=== PATIENT | female | born 1965 | race Caucasian/White ===

== ENCOUNTER 2019-04-26 12:27 | Outpatient (CLI) | payer OTHER, SELFPAY ==
--- NOTE | ~2019-04-26 | MM_ITS ---
EXAMINATION: MM screening [facility] BI w rosemary HISTORY: Screening mammogram TECHNIQUE: Craniocaudal and mediolateral oblique 3-D tomosynthesis images were obtained and synthetic 2-D images were generated. CAD analysis was submitted and interpreted. COMPARISON: 02/12/2015 BREAST PARENCHYMAL COMPOSITION: The breasts are heterogeneously dense, which may obscure small masses . FINDINGS: RIGHT BREAST: There is no evidence of suspicious mass, calcification, or architectural distortion to suggest malignancy. There has been no significant interval change. LEFT BREAST: There are grouped indeterminate calcifications in the middle third of the central breast 5 cm from the nipple. IMPRESSION: 1. Indeterminate left breast calcifications. 2. Magnification views are recommended. BI-RADS Category 0: Incomplete: Needs additional imaging evaluation. Reviewed, dictated and finalized at location A. NDARY TEACHER
== END 2019-04-26 12:28 ==
PROVIDERS: PCP Physician Assistant; Visit Provider Physician Assistant
DX: Z12.31 Encounter for screening mammogram for malignant neoplasm of breast (principal); R92.8 Other abnormal and inconclusive findings on diagnostic imaging of breast
CPT/HCPCS: 77063; 77067

== ENCOUNTER 2019-05-05 16:59 | Emergency (ER) | payer OTHER, SELFPAY ==
[2019-05-05 17:04] VITALS: BP 133/73; PULSE 83; RESP 16; TEMP 36.5; O2SAT 100
--- NOTE | 2019-05-05 17:12 | ED.GENADULT ---
HPI - General Adult General Chief complaint: Upper Respiratory Infection Stated complaint: congestion/cough/sore throat/ear pain Time Seen by Provider: 05/05/19 17:14 Source: patient and RN notes reviewed Limitations: no limitations History of Present Illness HPI narrative: This is a 53 years old female presented office for evaluation of sinus congestion for 4-day. Associated with headache and cough. She tried Afrin with no relief. Denies fever, sick contact, or sore throat. Related Data Home Medications Medication Instructions Recorded Confirmed irbesartan 150 mg DAILY 05/05/19 05/05/19 piroxicam 20 mg/kg DAILY 05/05/19 05/05/19 Allergies Allergy/AdvReac Type Severity Reaction Status Date / Time No Known Allergies Allergy Verified 05/05/19 17:11 Review of Systems Review of Systems: Narrative: CONSTITUTIONAL: Denies fever, chills ENT: Deniessore throat, otalgia. CARDIOVASCULAR: Denies chest pain RESPIRATORY: Denies dyspnea GASTROINTESTINAL: Denies abdominal pain, nausea, vomiting, diarrhea. GENITOURINARY: Denies urinary symptoms SKIN: Denies rash MUSCULOSKELETAL: Denies acute back pain NEUROLOGIC: Denies lightheaded PMFSH Past Medical History Medical History Anxiety Chronic headaches Depression Dyspnea HTN (hypertension) Insomnia Sleep apnea Weight gain Family History Family History Other Diabetes mellitus Family history of arthritis Family history of gout Family history of kidney disease Hypertension Social History Social History Smoking status: Former smoker Tobacco type: cigarettes Smoking end date: 03/22/95 Alcohol intake: current Substance use: unknown Gender identity (if verbalized by the patient): Female Spiritual care concerns: No Comments At time of signature, I agree with nursing past medical, surgical, social and family history. Exam Narrative: Exam Narrative: GENERAL: This is a well-nourished, well-developed patient, in no apparent distress. EYES: Sclera clear/white. Vision is grossly intact. EARS: External ears normal, auditory canals clear and without drainage, TMs normal without perforation. Hearing grossly intact. NOSE: External nose normal with no obvious nasal discharge, nares without redness, no rhinorrhea. THROAT: Mucous membranes moist, posterior pharynx clear. NECK: Neck supple, non-tender without lymphadenopathy, masses or thyromegaly. CARDIOVASCULAR: Regular rate and rhythm without murmurs, gallops, or rubs. RESPIRATORY: Clear to auscultation. Breath sounds equal bilaterally. No wheezes, rales, or rhonchi. GASTROINTESTINAL: Abdomen soft, non-tender, nondistended. Bowel sounds are active. No hepato-splenomegaly, or palpable masses. No guarding. SKIN: warm, intact with no suspicious lesions or rash, good texture and turgor. NEURO: awake, alert, and oriented to person, place and time. There were no obvious focal neurologic abnormalities. Steady gait Marsha Coma Scale Eye Opening: Spontaneous 4 Marsha Coma Scale Motor: Obeys Commands 6 [place] Coma Scale Verbal: Oriented 5 Course Vital Signs Vital signs: Vital Signs Temperature 97.7 F 05/05/19 17:04 Pulse Rate 83 05/05/19 17:04 Respiratory Rate 16 05/05/19 17:04 Blood Pressure 133/73 05/05/19 17:04 Pulse Oximetry 100 05/05/19 17:04 Temperature 97.7 F 05/05/19 17:04 Pulse Rate 83 05/05/19 17:04 Respiratory Rate 16 05/05/19 17:04 Blood Pressure 133/73 05/05/19 17:04 Pulse Oximetry 100 05/05/19 17:04 Medical Decision Making MDM Narrative Medical decision making narrative: Discharge instructions reviewed with patient, as well as provided in writing per nursing staff. The instructions also include specific and strict return/GO TO THE ER as well as f/u information. All questions have be
== END 2019-05-05 17:25 | disposition home or self-care (01) ==
PROVIDERS: Emergency Provider Nurse Practitioner; PCP Physician Assistant
DX: J01.00 Acute maxillary sinusitis, unspecified (principal); Z87.891 Personal history of nicotine dependence; I10 Essential (primary) hypertension; G47.30 Sleep apnea, unspecified
CPT/HCPCS: 99213; G0463

== ENCOUNTER → 2019-05-10 08:01 | Outpatient (CLI) | payer OTHER, SELFPAY ==
--- NOTE | ~2019-05-10 | MM_ITS ---
EXAMINATION: MM diagnostic mammo unilat LT HISTORY: Indeterminate left breast calcifications on screening mammogram TECHNIQUE: Additional images of the left breast were performed. CAD analysis was submitted and interp reted. COMPARISON: 04/26/2019, 02/12/2015 FINDINGS: There are grouped calcifications in the middle third of the upper outer quadrant of the andre ast at the 2:00 location approximately 5 cm from the nipple which appear to be amorphous in morpholog y. No associated mass or architectural distortion are identified. IMPRESSION: 1. Suspicious left breast calcifications. 2. Stereotactic biopsy is recommended. BI-RADS category 4, suspicious findings. Reviewed, dictated and finalized at location A. ICAL ASSISTANT CERTIFIED
== END ==
PROVIDERS: PCP Physician Assistant; Visit Provider Family Medicine
DX: R92.8 Other abnormal and inconclusive findings on diagnostic imaging of breast (principal)
CPT/HCPCS: 77065

== ENCOUNTER 2019-05-17 08:46 | Outpatient (CLI) | payer OTHER, SELFPAY ==
--- NOTE | ~2019-05-17 | MM_ITS ---
MM post biopsy invasive LT, MM stereotactic specimen LT, MM stereotactic bx LT EXAMINATION: MM post b iopsy invasive LT, MM stereotactic specimen LT, MM stereotactic bx LT DATE: 05/17/2019 INDICATION: Abnormal calcifications in the left breast. Stereotactic core biopsy is requested evalua te for malignancy.] TECHNIQUE AND FINDINGS: The risks and potential benefits of the procedure were discussed with the patient and written informe d consent was obtained. The patient was placed in the prone position clustered at the table with the left breast in craniocaudal compression, and the area of interest was localized and targeted utilizi ng digital imaging with stereotaxis. After sterile preparation of the skin, 1% lidocaine was utilized for local anesthesia at the skin pun cture site and 1% lidocaine with epinephrine was utilized for deeper local anesthesia/is about the bi opsy site. A 9G Sarnova vacuum assisted biopsy needle was advanced to the level of the calcification o f interest from a caudal approach utilizing stereotactic guidance and a total of 6 tissue core biopsi es were obtained. A specimen radiograph demonstrates that the calcifications of interest are included within the tissue cores. A tissue marker clip was then placed at the biopsy site. The needle was removed and hemosta sis was achieved. The patient tolerated the procedure well and there is no evidence of significant i mmediate complication. The patient was given verbal as well as written postprocedural instructions p rior to discharge from the department. Tissue cores were submitted to surgical pathology for histolo gic analysis. A 2-view left unilateral digital mammogram was obtained post procedure and this demonstrates that the tissue marker clip is in expected position.] IMPRESSION: 1. Successful stereotactic biopsy of calcifications in the upper quadrant of the left breast, follow ed by tissue marker clip placement. Please refer to pathology report for histologic analysis. Reviewed, dictated and finalized at location A. MOMETER PRODUCTION WORKER IMPRESSION: 1. Successful stereotactic biopsy of calcifications in the upper quadrant of t he left breast, followed by tissue marker clip placement. Please refer to path ology report for histologic analysis. IMPRESSION: 1. Successful stereotactic biopsy of calcifications in the upper quadrant of t he left breast, followed by tissue marker clip placement. Please refer to path ology report for histologic analysis.
== END 2019-05-17 08:47 | disposition home or self-care (01) ==
PROVIDERS: PCP Physician Assistant; Visit Provider Family Medicine
DX: R92.1 Mammographic calcification found on diagnostic imaging of breast (principal)
CPT/HCPCS: 19081; 88305; A4648

== ENCOUNTER 2020-03-02 10:42 | Emergency (ER) | payer OTHER, SELFPAY ==
[2020-03-02 10:51] VITALS: BP 131/79; PULSE 83; RESP 18; TEMP 37.2; O2SAT 98
--- NOTE | 2020-03-02 11:21 | ED.GENADULT ---
HPI - General Adult General Chief complaint: Upper Respiratory Infection Stated complaint: Cough Time Seen by Provider: 03/02/20 11:09 Source: patient and RN notes reviewed Mode of arrival: ambulatory Limitations: no limitations History of Present Illness HPI narrative: Patient presents today complaining of a dry cough x1 month. Denies any additional symptoms to include congestion, rhinorrhea, sore throat, headache, fever, shortness of breath. She has been diagnosed with bronchitis in the past. She was on prednisone in December for similar symptoms. Denies history of asthma or COPD. In April of this year she was given prescriptions for albuterol and budesonide breathing treatments, but she did not know if it was appropriate that she use those during this illness so she has not been. She has been using Vicks VapoRub without relief. Cough is keeping her up at night. MD complaint: Cough Related Data Home Medications Medication Instructions Recorded Confirmed irbesartan-hydrochlorothiazide 1 tablet PO DAILY 03/02/20 03/02/20 Allergies Allergy/AdvReac Type Severity Reaction Status Date / Time No Known Allergies Allergy Verified 03/02/20 10:44 Review of Systems Review of Systems: Narrative: CONSTITUTIONAL: Denies body aches, fever, chills, or sweats. EYES: Denies visual changes, redness, or discharge. ENT: Denies rhinorrhea, congestion, sore throat, or otalgia. CARDIOVASCULAR: Denies chest pain, palpitations, or edema. RESPIRATORY: Denies dyspnea.+ Cough GASTROINTESTINAL: Denies abdominal pain, nausea, vomiting, or diarrhea. GENITOURINARY: Denies dysuria or hematuria. SKIN: Denies rash, itching, or wounds. MUSCULOSKELETAL: Denies back pain, joint pain, or myalgia. NEUROLOGIC: Denies headache, numbness, tingling, or weakness. PSYCH: Denies depression or anxiety. [facility] Past Medical History Medical History (Updated 03/02/20 @ 11:21 by Anjana Downing, AFUA, ) Anxiety Chronic headaches Depression Dyspnea HTN (hypertension) Insomnia Sleep apnea Weight gain Family History Family History Other Diabetes mellitus Family history of arthritis Family history of gout Family history of kidney disease Hypertension Social History Social History Smoking status: Former smoker Tobacco type: cigarettes Smoking end date: 03/22/95 Alcohol intake: current Substance use: unknown Gender identity (if verbalized by the patient): Female Spiritual care concerns: No Comments At time of signature, I have reviewed and agree with nursing past medical, surgical, social and family history unless otherwise noted. Please see nursing chart for further information. There is no relevant family history pertinent to the presenting complaint Exam Narrative: Exam Narrative: GENERAL: Well-appearing, well-nourished, and in no acute distress. HEAD: Normocephalic, atraumatic. EYES: EOMI. No redness or drainage. Conjunctivae normal. ENT: Mucous membranes pink and moist. Nares clear. No rhinorrhea. TMs normal bilaterally. Throat normal. Uvula midline. NECK: Normal AROM. Supple. No lymphadenopathy. CHEST: No respiratory distress. Clear to auscultation. Frequent dry, tight cough HEART: Regular rate and rhythm. No murmur appreciated. Normal peripheral pulses. ABDOMEN: Soft, nontender, nondistended, normal active bowel sounds. MUSCULOSKELETAL: No bony tenderness. EXTREMITIES: Normal range of motion. No edema. SKIN: Warm, dry, no rash. Capillary refill normal. Normal skin turgor. NEURO: No focal deficits. Alert and oriented x3. Gait steady. PSYCH: Normal affect. No signs of depression or anxiety. Course Vital Signs Vital signs: Vital Signs Temperature 98.9 F 03/02/20 10:51 Pulse Rate 83 03/02/20 10:51 Respiratory Rate 18 03/02/20 10:51 Blood Pressure 131/79 03/02/20 10:51 Pulse Oxime
== END 2020-03-02 11:28 | disposition home or self-care (01) ==
PROVIDERS: Emergency Provider Nurse Practitioner; PCP Family Medicine
DX: J40 Bronchitis, not specified as acute or chronic (principal); Z87.891 Personal history of nicotine dependence; I10 Essential (primary) hypertension; G47.30 Sleep apnea, unspecified
CPT/HCPCS: 99213; G0463

== ENCOUNTER 2020-04-14 21:16 | Emergency (ER) | payer OTHER, SELFPAY ==
[2020-04-14] VITALS (12 sets, daily range): BP systolic 122–143; BP diastolic 70–78; PULSE 95; RESP 18; TEMP 36.2; O2SAT 94–99
--- NOTE | ~2020-04-14 | CT_ITS ---
EXAMINATION: CT abdomen pelvis wo con EXAM DATE: 04/14/2020 23:19 INDICATION: Right flank pain for couple of weeks. TECHNIQUE: Spiral CT of the abdomen and pelvis was performed without contrast. Axial, coronal and sag ittal images were reviewed. The dose-length product (DLP) for this examination was 1151.12 mGy-cm. The exposure was tailored according to patient size (auto mA exposure control), and iterative reconst ruction (ASIR) was used as additional dose reduction technique. Comparison is made to prior examinati on from 11/21/2016. FINDINGS: There are bilateral nonobstructing calyceal stones, with one in the right renal pelvis lazaro uring 8 mm and one in the left renal pelvis measuring 10 mm. Several other smaller left calyceal ston es. No ureteral stones or hydronephrosis. There is an IUD in the uterus. There is a fundal fibroid m easuring 5.5 cm. The bladder is unremarkable. The liver, spleen, adrenal glands and pancreas are un remarkable. There are cholecystectomy clips. There is no retroperitoneal or pelvic lymphadenopathy. The appendix is normal. The stomach and small bowel are unremarkable. There is expected amount of c olonic stool. No free intraperitoneal gas. The heart is normal in size. There are no pericardial or pleural effusions. The lung bases are unremarkable. There is advanced lower lumbar facet arthro fadumo. IMPRESSION: 1. Bilateral nonobstructing kidney stones. 2. Fibroid uterus. Reviewed, dictated and finalized at location A. ULAR PHYSICIAN
[2020-04-14 22:15] LABS: Basophils Absolute Auto 0.1 K/mm3 (0.0-0.1); Eosinophils Absolute Auto 0.2 K/mm3 (0-0.3); Eosinophils Percent Auto 2.3 % (0-4.4); Hematocrit 38.1 % (37.0-47.0); Hemoglobin 12.9 g/dL (12.0-15.0); Immature Granulocyte Absolute 0.03 K/mm3 (0.00-0.031); Immature Granulocyte Percent A 0.4 % (0-0.5); Lymphocytes Absolute Auto 2.84 K/mm3 (0.9-3.2); Mean Corpuscular HGB Conc 33.9 g/dl (32-36); Mean Corpuscular Hemoglobin 31.7 pg (26-34); Mean Corpuscular Volume 93.6 fl (80-100); Mean Platelet Volume 10.7 fl (7.4-10.4); Monocytes Absolute Auto 0.7 K/mm3 (0.1-0.6); Monocytes Percent Auto 8.5 % (2.6-8.5); Neutrophils Absolute Auto 4.1 K/mm3 (1.3-6.7); Neutrophils Percent Auto 51.8 % (45.5-73.1); Platelet Count Result 325 k/mm3 (150-375); Red Blood Count 4.07 M/mm3 (4.2-5.4); Red Cell Distribution Width 12.3 % (11.5-14.5); White Blood Count 7.9 K/mm3 (4.5-10.0)
[2020-04-14 22:23] LABS: Add Urine Microscopic? YES; Appearance Urine Cloudy (Clear); Bacteria Urine Trace /hpf; Bilirubin Urine Negative (Negative); Blood Urine 3+ (Negative); Color Urine Yellow (Yellow); Glucose Urine UA Negative (Negative); Ketones Urine Negative (Negative); Leukocyte Esterase Ur Negative LEU/UL (Negative); Mucus Urine Rare /lpf; Nitrate Urine Negative (Negative); Protein Urine 2+ mg/dL (Negative); RBC Urine >75 /hpf (0-2); Specific Grav Ur 1.023 (1.001-1.035); Squamous Epithelial Cell Urine Many /hpf (Few); Urobilinogen Urine Negative mg/dL (<2.0); WBC Urine 0-3 /hpf
[2020-04-14 22:27] LABS: Anion Gap 7 mmol/L (8-16); Blood Urea Nitrogen 18 mg/dL (7-17); Calcium 8.9 mg/dL (8.4-10.2); Carbon Dioxide 28 mmol/L (22-30); Chloride 104 mmol/L (98-107); Estimated CRCL calculation 93 ml/min; Estimated Glomerular Filt Rate > 60; Glucose 124 mg/dL (65-105); Potassium 3.5 mmol/L (3.4-5.0); Sodium 139 mmol/L (137-145)
[2020-04-14] MEDS: KETOROLAC 30 MG/ML VIAL (*BKC) IV PUSH (22:42)
[2020-04-15] VITALS: O2SAT 99
[2020-04-15 00:01] VITALS: BP 124/78; O2SAT 98
--- NOTE | 2020-04-15 00:08 | ED.FEMALEGU ---
HPI - Female Genitourinary General Chief complaint: Urogenital-Female Stated complaint: think its a kidney stone Time Seen by Provider: 04/14/20 21:26 History of Present Illness HPI Narrative: Patient is a 54-year-old female who presents ER with right-sided low back/flank pain. Has history of kidney stones. Patient thinks this is similar. Had some hematuria couple days ago. No dysuria or urinary frequency. No waves of nausea or vomiting. Denies alleviating factors. Related Data Home Medications Medication Instructions Recorded Confirmed irbesartan-hydrochlorothiazide 1 tablet PO DAILY 03/02/20 03/02/20 Allergies Allergy/AdvReac Type Severity Reaction Status Date / Time No Known Allergies Allergy Verified 04/14/20 21:17 Review of Systems Review of Systems: All systems reviewed & are unremarkable except as noted in HPI and below Gastrointestinal: Gastrointestinal: Denies abdominal pain, Denies nausea and Denies vomiting Genitourinary: Genitourinary: Reports hematuria and Reports flank pain Neurologic: Denies headache(s), Denies focal weakness and Denies numbness PMFSH Past Medical History Medical History (Updated 04/15/20 @ 00:11 by Robert Orozco MD) Anxiety Chronic headaches Depression Dyspnea HTN (hypertension) Insomnia Sleep apnea Weight gain Family History Family History Other Diabetes mellitus Family history of arthritis Family history of gout Family history of kidney disease Hypertension Social History Social History Smoking status: Former smoker Tobacco type: cigarettes Smoking end date: 03/22/95 Alcohol intake: current Substance use: unknown Gender identity (if verbalized by the patient): Female Spiritual care concerns: No Exam Narrative: Exam Narrative: GENERAL: Well-appearing, well-nourished, and in no acute distress. HEAD: Normocephalic, atraumatic. CHEST: Clear to auscultation. No respiratory distress. HEART: Regular rate and rhythm. Normal peripheral pulses. ABDOMEN: Soft, nontender, nondistended, no CVA tenderness. Back: No midline T/L-spine tenderness. No reproducible paraspinal muscular tenderness. EXTREMITIES: Normal range of motion. No edema. NEURO: Alert and oriented x3. PSYCH: Normal mood and affect. Course Course Emergency Course: Pain improved with Toradol. Informed results. Discharge home. Vital Signs Vital signs: Vital Signs Temperature 97.1 F L 04/14/20 21:19 Pulse Rate 95 04/14/20 21:19 Respiratory Rate 18 04/14/20 21:19 Blood Pressure 143/78 H 04/14/20 21:19 Pulse Oximetry 94 04/14/20 21:19 Temperature 97.1 F L 04/14/20 21:19 Pulse Rate 95 04/14/20 21:19 Respiratory Rate 18 04/14/20 21:19 Blood Pressure 122/77 04/14/20 22:31 Pulse Oximetry 99 04/14/20 22:31 MDM - Female Genitourinary Lab Data Result diagrams: 04/14/20 21:59 04/14/20 21:59 Labs: Lab Results 04/14/20 04/14/20 04/14/20 Range/Units 21:59 21:59 21:59 WBC 7.9 (4.5-10.0) K/mm3 RBC 4.07 L (4.2-5.4) M/mm3 Hgb 12.9 (12.0-15.0) g/dL Hct 38.1 (37.0-47.0) % MCV 93.6 (80-100) fl MCH 31.7 (26-34) pg MCHC 33.9 (32-36) g/dl RDW 12.3 (11.5-14.5) % Plt Count 325 (150-375) k/mm3 MPV 10.7 H (7.4-10.4) fl Immature Gran % (Auto) 0.4 (0-0.5) % Neut % (Auto) 51.8 (45.5-73.1) % Lymph % (Auto) 36.0 (18.3-44.2) % Alcorn % (Auto) 8.5 (2.6-8.5) % Eos % (Auto) 2.3 (0-4.4) % Baso % (Auto) 1.0 (0.2-1.2) % Lymph # (Auto) 2.84 (0.9-3.2) K/mm3 Alcorn # (Auto) 0.7 H (0.1-0.6) K/mm3 Eos # (Auto) 0.2 (0-0.3) K/mm3 Baso # (Auto) 0.1 (0.0-0.1) K/mm3 Abs Immat Gran (auto) 0.03 (0.00-0.031) K/mm3 Absolute Neuts (auto) 4.1 (1.3-6.7) K/mm3 Absolute Nucleated RBC 0.0 (0.0-0.012) K/mm3 Nucleated RBC %
[2020-04-15 00:15] VITALS: O2SAT 96
== END 2020-04-15 00:34 | disposition home or self-care (01) ==
PROVIDERS: Emergency Medicine; Emergency Provider Emergency Medicine; PCP Family Medicine
DX: N20.0 Calculus of kidney (principal); I10 Essential (primary) hypertension; G47.30 Sleep apnea, unspecified; Z87.891 Personal history of nicotine dependence; Z87.442 Personal history of urinary calculi; D25.9 Leiomyoma of uterus, unspecified
CPT/HCPCS: 36415; 74176; 80048; 81001; 81025; 85025; 96374; 99284; J1885

== ENCOUNTER 2020-04-16 02:28 | Outpatient (CLI) | payer OTHER, SELFPAY ==
[2020-04-16 18:12] LABS: SARS-CoV-2 RNA PCR Negative
== END 2020-04-16 02:29 | disposition home or self-care (01) ==
LOC: ANHCOVIDDT 02:29
PROVIDERS: PCP Family Medicine; Visit Provider Urology
DX: Z01.812 Encounter for preprocedural laboratory examination (principal); Z20.822 Contact with and (suspected) exposure to COVID-19
CPT/HCPCS: C9803; U0003; U0005

== ENCOUNTER 2020-04-16 09:25 | Outpatient (CLI) | payer OTHER, SELFPAY ==
--- NOTE | 2020-04-16 09:28 | ECG_ITS ---
Measurements Intervals [place] Rate: 65 P: 38 MD: 149 QRS: -12 QRSD: 87 T: 17 QT: 376 QTc: 392 Interpretive Statements SINUS RHYTHM POOR R WAVE PROGRESSION, ANTERIOR LEADS BASELINE ARTIFACT- I, III, AVL BORDERLINE ECG Electronically Signed On 04-16-2020 11:07:13 PUBLICITY MANAGER by Rambo Stauffer D.O.
[2020-04-16 10:35] LABS: INR 0.9; Prothrombin Time 12.6 Seconds (11.1-14.7)
[2020-04-16 10:36] LABS: Partial Thromboplastin Time 27.1 SECONDS (22.3-36.8)
== END 2020-04-16 09:26 | disposition home or self-care (01) ==
LOC: ANHSURGERY 09:28
PROVIDERS: PCP Family Medicine; Visit Provider Urology
DX: N20.0 Calculus of kidney (principal); I10 Essential (primary) hypertension; Z01.818 Encounter for other preprocedural examination; R94.31 Abnormal electrocardiogram [ECG] [EKG]
CPT/HCPCS: 36415; 85610; 85730; 87077; 87086; 87088; 87186; 93005

== ENCOUNTER 2020-04-19 01:50 | Day surgery (SDC) | payer OTHER, SELFPAY ==
[2020-04-16 08:33] VITALS: BMI 33.0
--- NOTE | 2020-04-18 14:46 | WPDANESEPPF ---
Anes - Initial Pre Proc Eval Procedure: Operation Date: 04/19/20 11:30 Proposed Procedures p Right Renal Extracorporeal Shock Wave Lithotripsy - Evaristo Vega MD Date/Time: 04/18/20 14:46 Surgeon: Evaristo Vega MD Pre Op Diagnosis: Right Renal Stone Patient Data Age: 54 Gender: F Height: 1.68 m Weight: 93 kg Allergies Allergy/AdvReac Type Severity Reaction Status Date / Time No Known Allergies Allergy Verified 04/16/20 08:29 Home Medications Medication Instructions Recorded Confirmed Type irbesartan-hydrochlorothiazide 1 tablet PO QAM 03/02/20 04/16/20 History albuterol sulfate 2.5 mg INHALATION BID PRN 04/16/20 04/16/20 History budesonide 0.5 mg INHALATION BID PRN 04/16/20 04/16/20 History Patient hx anesthesia problems: none Family hx anesthesia problems: none PMFSH Past Medical History Medical History (Updated 04/19/20 @ 09:35 by Damien Hart MD) Anxiety Chronic headaches COPD (chronic obstructive pulmonary disease) Depression Dyspnea HTN (hypertension) Insomnia Obesity Sleep apnea Weight gain Family History Family History Other Diabetes mellitus Family history of arthritis Family history of gout Family history of kidney disease Hypertension Social History Social History Smoking packs per day: 1.5 Smoking cigarettes per day: 30.0 Years smoked: 9 Smoking pack-years: 13.50 Smoking status: Former smoker Tobacco type: cigarettes Smoking end date: 09/20/95 Alcohol intake: current Substance use: never Living arrangements: with family Additional living arrangements comments: BOYFRIEND AND DAUGHTER Gender identity (if verbalized by the patient): Female Spiritual care concerns: No Anes - Eval Final PreProcedure Day of Procedure 04/18/20 14:46 Patient weight: obese Heart: regular rate and rhythm Lungs: clear to auscultation and normal air movement Airway: Mallampati scale class II Neurological: alert and oriented Last oral intake: >/= 8 hours ASA classification: III Emergent: no Anesthetic plan: proceed Anesthesia type and monitoring: general GIVS and LMA Informed Consent: The patient's anesthetic plan and its attendant risks and benefits were discussed with the patient/family/POA. Questions were solicited and answers provided to the satisfaction of the patient/family/POA.
[2020-04-19] VITALS (8 sets, daily range): BP systolic 118–131; BP diastolic 73–83; PULSE 79–92; RESP 14–20; TEMP 36.1–36.3; O2SAT 97–98
--- NOTE | ~2020-04-19 | XR_ITS ---
EXAMINATION: XR abdomen/kub 1V EXAM DATE: 04/19/2020 09:33 INDICATION: Bilateral kidney stones. TECHNIQUE: Frontal projection(s) of the abdomen for interpretation. Comparison is made to prior exami nation from 01/19/2019. FINDINGS: Several left calyceal stones, measuring up to 1 cm in size, not definitely identified on pr evious examination. There is bowel gas obscuring the right renal contour. There are cholecystectomy c lips. There is IUD projecting over the central aspect of the pelvis. Mild to moderate bony degenerati ve changes. Nonobstructive bowel gas pattern. IMPRESSION: Left nephrolithiasis. Right kidney obscured. Reviewed, dictated and finalized at location A. INTEGRITY SPECIALIST
--- NOTE | 2020-04-19 08:45 | WPDHPUPDATE1 ---
History and Physical Update Update Date/Time: 04/19/20 08:45 History and Physical has been reviewed, including an updated exam of the patient. There are NO changes in the patient's condition. Risks, benefits, and alternatives have been discussed and questions answered. Patient agrees to proceed with procedure.
[2020-04-19] MEDS: LACTATED RINGERS 1,000 ML 30 ML IV CONT (10:07)
[2020-04-19] MEDS: ceFAZolin 2 GM/D5W 50 ML 2 GM/50 ML BAG IVPB (10:51)
[2020-04-19] MEDS: SCOPOLAMINE 1.5 MG PATCH TRANSDERM (10:51)
--- NOTE | 2020-04-19 11:06 | PM.PROC ---
Procedure Note - Detailed Date of procedure: 04/19/20 Pre-op diagnosis: Right Renal Stone Post-op diagnosis: same Procedure performed: Right ESWL Description of procedure: The patient was brought to the operative suite where she was placed in the supine position on the Dornier lithotripsy table. The focal point of the lithotripter was placed at a 5-6mm right calculus. A total of 2500 shocks were delivered at a power setting of 4. There appeared to be good fragmentation of the stone. The patient tolerated the procedure well and was taken to the recovery room in good condition. Anesthesia: MAC Surgeon: Evaristo Vega MD Estimated blood loss (mL): 0 Drains: No Packing: No Pathology: none sent Complications: No immediate complications Condition: stable Disposition: PACU
[2020-04-19] MEDS: oxyCODONE HCL (*CRX) 5 MG TAB IR PO (13:01)
== END 2020-04-19 13:37 | disposition home or self-care (01) ==
PROVIDERS: PCP Family Medicine; Visit Provider Urology
PROC: (CPT 50590; principal; 2020-04-19 11:30)
DX: N20.0 Calculus of kidney (principal); Z79.51 Long term (current) use of inhaled steroids; F41.9 Anxiety disorder, unspecified; J44.9 Chronic obstructive pulmonary disease, unspecified; I10 Essential (primary) hypertension; G47.00 Insomnia, unspecified; E66.8 Other obesity; Z68.32 Body mass index [BMI] 32.0-32.9, adult; Z87.891 Personal history of nicotine dependence
CPT/HCPCS: 50590; 36415; 74018; 85610; 85730; 87077; 87086; 87088; 87186; 93005; A9270; C9803; J0690; J1100; J2405; J2704; J7120; U0003; U0005

== ENCOUNTER 2020-04-29 08:32 | Outpatient (CLI) | payer OTHER, SELFPAY ==
--- NOTE | ~2020-04-29 | XR_ITS ---
XR abdomen/kub 1V 04/29/2020 08:49 Indication: Kidney stones Procedure: KUB Comparison: Comparison to multiple prior studies sequentially, with oldest reviewed study dated 05/15. Findings: There are multiple left renal stones, largest measuringr 13 x 6 mm. There are cholecystecto my clips. Bowel pattern is nonobstructive. There is an IUD in the pelvis. Moderate colonic fecal load ing. Impression: 1: Left nephrolithiasis. Reviewed, dictated and finalized at location B. SCHOOL LIBRARIAN Impression: 1: Left nephrolithiasis.
== END 2020-04-29 08:33 | disposition home or self-care (01) ==
PROVIDERS: PCP Family Medicine; Visit Provider Urology
DX: N20.0 Calculus of kidney (principal)
CPT/HCPCS: 74018

== ENCOUNTER 2020-05-10 13:58 | Outpatient (CLI) | payer OTHER, SELFPAY ==
[2020-05-10 11:07] LABS: INR 0.9; Prothrombin Time 12.3 Seconds (11.1-14.7)
[2020-05-10 11:08] LABS: Partial Thromboplastin Time 29.2 SECONDS (22.3-36.8)
== END 2020-05-10 13:59 ==
LOC: ANHSURGERY 06-03 13:58
PROVIDERS: PCP Family Medicine; Visit Provider Urology
DX: Z01.818 Encounter for other preprocedural examination (principal); N20.0 Calculus of kidney
CPT/HCPCS: 36415; 85610; 85730; 87086

== ENCOUNTER → 2020-05-14 03:24 | Outpatient (CLI) | payer OTHER, SELFPAY ==
[2020-05-14 20:35] LABS: SARS-CoV-2 RNA PCR Negative
== END ==
PROVIDERS: PCP Family Medicine; Visit Provider Urology
DX: Z01.818 Encounter for other preprocedural examination (principal); Z20.822 Contact with and (suspected) exposure to COVID-19
CPT/HCPCS: C9803; U0003; U0005

== ENCOUNTER 2020-05-17 00:59 | Day surgery (SDC) | payer OTHER, SELFPAY ==
[2020-05-09 10:58] VITALS: BMI 32.3
[2020-05-17] VITALS (8 sets, daily range): BP systolic 93–125; BP diastolic 51–71; PULSE 80–94; RESP 12–20; TEMP 36.4–36.7; O2SAT 94–100
--- NOTE | ~2020-05-17 | XR_ITS ---
EXAMINATION: XR abdomen/kub 1V DATE: 05/17/2020 06:11 INDICATION: Lithotripsy TECHNIQUE: A supine view of the abdomen on 2 radiographs was obtained. COMPARISON: 04/29/2020 FINDINGS: 2-3 mm stone likely in the proximal left ureter projecting slightly superolateral to the tip of the l eft transverse process of L4. 8 mm stone projects over the mid left kidney. Unchanged phleboliths in the left hemipelvis. No right-sided urolithiasis. Cholecystectomy clips in the right upper quadrant. IUD in expected position projecting over the central pelvis. Severe lower lumbar facet osteoarthritis . IMPRESSION: 1. Nephrolithiasis with 8 mm stone at the mid left kidney and 2-3 mm stone in the proximal left urete r. 2. IUD. Reviewed, dictated and finalized at location A. LE HOMES REPAIRER IMPRESSION: 1. Nephrolithiasis with 8 mm stone at the mid left kidney and 2-3 mm stone in t he proximal left ureter. 2. IUD.
[2020-05-17] MEDS: LACTATED RINGERS 1,000 ML 30 ML IV CONT (07:00)
--- NOTE | 2020-05-17 07:00 | WPDHPUPDATE1 ---
History and Physical Update Update Date/Time: 05/17/20 07:00 History and Physical has been reviewed, including an updated exam of the patient. There are NO changes in the patient's condition. Risks, benefits, and alternatives have been discussed and questions answered. Patient agrees to proceed with procedure.
[2020-05-17] MEDS: SCOPOLAMINE 1.5 MG PATCH TRANSDERM (07:01)
--- NOTE | 2020-05-17 07:02 | WPDANESEPPF ---
Anes - Initial Pre Proc Eval Procedure: Operation Date: 05/17/20 07:30 Proposed Procedures p Left Renal Extracorporeal Shock Wave Lithotripsy - Evaristo Vega MD Date/Time: 05/17/20 07:02 Surgeon: Evaristo Vega MD Pre Op Diagnosis: Bilateral Kidney stones Patient Data Age: 54 Gender: F Height: 5 ft 6 in Weight: 91.7 kg Allergies Allergy/AdvReac Type Severity Reaction Status Date / Time No Known Allergies Allergy Verified 05/17/20 06:18 Home Medications Medication Instructions Recorded Confirmed Type irbesartan-hydrochlorothiazide 1 tablet PO QAM 03/02/20 05/17/20 History albuterol sulfate 2.5 mg INHALATION BID PRN 04/16/20 05/09/20 History budesonide 0.5 mg INHALATION BID PRN 04/16/20 05/09/20 History Patient hx anesthesia problems: post op nausea/vomiting Family hx anesthesia problems: none PMFSH Past Medical History Medical History Anxiety Chronic headaches COPD (chronic obstructive pulmonary disease) Depression Dyspnea HTN (hypertension) Insomnia Obesity Sleep apnea Weight gain Family History Family History Other Diabetes mellitus Family history of arthritis Family history of gout Family history of kidney disease Hypertension Social History Social History Smoking packs per day: 1.5 Smoking cigarettes per day: 30.0 Years smoked: 9 Smoking pack-years: 13.50 Smoking status: Former smoker Tobacco type: cigarettes Smoking end date: 09/20/95 Alcohol intake: current Substance use: never Additional living arrangements comments: BOYFRIEND AND DAUGHTER Gender identity (if verbalized by the patient): Female Spiritual care concerns: No Anes - Eval Final PreProcedure Day of Procedure 05/17/20 07:02 Patient weight: obese Heart: regular rate and rhythm Lungs: decreased breath sounds Airway: Mallampati scale class II Neurological: alert and oriented Last oral intake: >/= 8 hours ASA classification: III Emergent: no Anesthetic plan: proceed Anesthesia type and monitoring: general LMA and standard monitoring Informed Consent: The patient's anesthetic plan and its attendant risks and benefits were discussed with the patient/family/POA. Questions were solicited and answers provided to the satisfaction of the patient/family/POA.
[2020-05-17] MEDS: ceFAZolin 2 GM/D5W 50 ML 2 GM/50 ML BAG IVPB (07:14)
--- NOTE | 2020-05-17 07:37 | PM.PROC ---
Procedure Note - Detailed Date of procedure: 05/17/20 Pre-op diagnosis: Left kidney stone Post-op diagnosis: same Procedure performed: Left ESWL Description of procedure: The patient was brought to the operative suite where she was placed in the supine position on the Dornier lithotripsy table. The focal point of the lithotripter was placed at a 7mm left renal calculus. A total of 2500 shocks were delivered at a power setting of 4. There appeared to be good fragmentation of the stone. The patient tolerated the procedure well and was taken to the recovery room in good condition. Anesthesia: GLMA Surgeon: Evaristo Vega MD Estimated blood loss (mL): 0 Drains: No Packing: No Pathology: none sent Complications: No immediate complications Condition: stable Disposition: PACU
[2020-05-17] MEDS: oxyCODONE HCL (*CRX) 5 MG TAB IR PO (09:03)
== END 2020-05-17 09:40 | disposition home or self-care (01) ==
PROVIDERS: PCP Family Medicine; Visit Provider Urology
PROC: (CPT 50590; principal; 2020-05-17 07:30)
DX: N20.0 Calculus of kidney (principal); F41.9 Anxiety disorder, unspecified; J44.9 Chronic obstructive pulmonary disease, unspecified; F32.9 Major depressive disorder, single episode, unspecified; R06.00 Dyspnea, unspecified; I10 Essential (primary) hypertension; G47.00 Insomnia, unspecified; G47.30 Sleep apnea, unspecified; Z87.891 Personal history of nicotine dependence; E66.9 Obesity, unspecified; Z68.32 Body mass index [BMI] 32.0-32.9, adult; Z79.51 Long term (current) use of inhaled steroids
CPT/HCPCS: 50590; 36415; 74018; 85610; 85730; 87086; A9270; C9803; J0690; J1100; J2250; J2270; J2370; J2405; J2704; J7120; U0003; U0005

== ENCOUNTER 2020-06-03 08:40 | Outpatient (CLI) | payer OTHER, SELFPAY ==
--- NOTE | ~2020-06-03 | XR_ITS ---
EXAMINATION: XR abdomen/kub 1V EXAM DATE: 06/03/2020 08:56 INDICATION: Bilateral kidney stones. TECHNIQUE: Frontal projection of the upper abdomen, frontal projection lower abdomen/pelvis for inter pretation. Comparison is made to prior examination from 05/17/2020. FINDINGS: There is 3 mm density projecting over lower pole of the left kidney probably calyceal ston e fragment (there was much larger more dense stone present on prior study). This has been indicated. Difficult to identify any definite right nephrolithiasis, but there is bowel gas overlying both kidne ys. There are cholecystectomy clips. Nonobstructive bowel gas pattern. There is IUD projecting over t he central aspect of the pelvis. IMPRESSION: 1. Probable small left inferior calyceal stone fragment. Reviewed, dictated and finalized at location A.
== END 2020-06-03 08:41 | disposition home or self-care (01) ==
LOC: ANHIMG 08:43
PROVIDERS: PCP Family Medicine; Visit Provider Urology
DX: N20.0 Calculus of kidney (principal)
CPT/HCPCS: 74018

== ENCOUNTER → 2020-07-16 06:32 | Outpatient (CLI) | payer OTHER, SELFPAY ==
[2020-07-16 20:47] LABS: SARS-CoV-2 RNA PCR Negative
== END ==
PROVIDERS: PCP Family Medicine; Visit Provider Physician Assistant
DX: R68.89 Other general symptoms and signs (principal); Z20.822 Contact with and (suspected) exposure to COVID-19
CPT/HCPCS: C9803; U0003; U0005

== ENCOUNTER 2021-02-14 18:51 | Emergency (ER) | payer OTHER, SELFPAY ==
[2021-02-14 19:37] VITALS: BP 125/72; PULSE 92; RESP 14; TEMP 36.2; O2SAT 98
--- NOTE | 2021-02-14 19:57 | ED.EAR ---
HPI - Ear Problem General Chief complaint: Ear Stated complaint: lt earache Source: patient and RN notes reviewed Limitations: no limitations History of Present Illness HPI Narrative: The patient, previously mostly healthy on routine meds and a ex-smoker/nondrinker, presents with ear discomfort. Patient states she has a 3-day history of decreased hearing mostly out of her left ear; she works at [employer] and wears earplugs. EENT history is remarkable for she's seen Dr. Villanueva in the past , yet years ago; no fever, URI?sinusitis, injury, discharge; advised to maybe use earmuffs. Related Data Home Medications Medication Instructions Recorded Confirmed irbesartan-hydrochlorothiazide tablet 02/14/21 02/14/21 Allergies Allergy/AdvReac Type Severity Reaction Status Date / Time No Known Allergies Allergy Verified 02/14/21 19:41 Review of Systems Review of Systems: General/Constitutional: No weight loss,fever Eyes: N0: Redness,discharge Ears/Nose/Throat: No: Epistaxis,ear discharge Respiratory: Denies: Hemoptysis Gastrointestinal: No Vomiting, Bleeding-rectal Skin: No Lumps, eruption Neurologic: No Focal Weakness,Sz Hematologic: Denies: Petechiae/Purpura Psychiatric: No: Suicida ideationl All Other Systems: Reviewed and Negative FOR[facility]LY [facility] Past Medical History Medical History Anxiety Chronic headaches COPD (chronic obstructive pulmonary disease) Depression Dyspnea HTN (hypertension) Insomnia Obesity Sleep apnea Weight gain Family History Family History Other Diabetes mellitus Family history of arthritis Family history of gout Family history of kidney disease Hypertension Social History Social History Smoking packs per day: 1.5 Smoking cigarettes per day: 30.0 Years smoked: 9 Smoking pack-years: 13.50 Smoking status: Former smoker Tobacco type: cigarettes Smoking end date: 09/20/95 Alcohol intake: current Substance use: never Additional living arrangements comments: BOYFRIEND AND DAUGHTER Gender identity (if verbalized by the patient): Female Spiritual care concerns: No Comments At time of signature, agree with nursing past medical, surgical, social and family history. There is no relevant family history pertinent to the presenting complaint Exam Narrative: General Appearance: Well appearing, Well nourished EYE: PERRLA, Conjunctiva clear Ears: Auditory canal normal, left TM with clear yellowish air-fluid level, right TM normal Nose: No Rhinorrhea, Mucousal erythema Mouth/Throat: MM moist, Uvula midline, no pharyngeal erythema Neck: Supple, No adenopathy Respiratory: No respiratory distress, Breath sounds equal, Clear to auscultation Cardiovascular: RRR, No JVD Musculoskeletal: Non tender, Normal strength Skin: Warm, Dry Neurological: A&O x3, CN II-XII intact Psychiatric: Normal mood, Normal affect Course Vital Signs Vital signs: Vital Signs Temperature 97.1 F L 02/14/21 19:37 Pulse Rate 92 02/14/21 19:37 Respiratory Rate 14 02/14/21 19:37 Blood Pressure 125/72 02/14/21 19:37 Pulse Oximetry 98 02/14/21 19:37 Temperature 97.1 F L 02/14/21 19:37 Pulse Rate 92 02/14/21 19:37 Respiratory Rate 14 02/14/21 19:37 Blood Pressure 125/72 02/14/21 19:37 Pulse Oximetry 98 02/14/21 19:37 Medical Decision Making Vital Signs Vital Signs: Vital Signs Temperature 97.1 F L 02/14/21 19:37 Pulse Rate 92 02/14/21 19:37 Respiratory Rate 14 02/14/21 19:37 Blood Pressure 125/72 02/14/21 19:37 Pulse Oximetry 98 02/14/21 19:37 Temperature 97.1 F L 02/14/21 19:37 Pulse Rate 92 02/14/21 19:37 Respiratory Rate 14 02/14/21 19:37 Blood Pressure 125/72 02/14/21 19:37 Pulse Oximetry 98 02/14/21 19:37
== END 2021-02-14 20:11 | disposition home or self-care (01) ==
PROVIDERS: Emergency Provider Emergency Medicine; PCP Physician Assistant
DX: H66.92 Otitis media, unspecified, left ear (principal); Z87.891 Personal history of nicotine dependence; J44.9 Chronic obstructive pulmonary disease, unspecified; I10 Essential (primary) hypertension; G47.30 Sleep apnea, unspecified
CPT/HCPCS: 99213; G0463

== ENCOUNTER 2021-06-29 11:31 | Emergency (ER) | payer OTHER, SELFPAY ==
--- NOTE | ~2021-06-29 | XR_ITS ---
EXAMINATION: XR hand RT 2V EXAM DATE: 06/29/2021 11:57 INDICATION: Right hand pain, limited range of motion, no injury. TECHNIQUE: Right hand frontal, lateral projections obtained and reviewed. There is no prior study fo r comparison. FINDINGS: Right metacarpal bones are unremarkable. There is mild to moderate polyarticular distal in terphalangeal primary osteoarthritis. There are no acute fractures or dislocations identified. There is no subcutaneous gas. The soft tissue is unremarkable. There are no radiopaque foreign bodies. IMPRESSION: 1. 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 2. No acute right hand findings. Reviewed, dictated and finalized at location A.
[2021-06-29 11:34] VITALS: BP 151/84; PULSE 90; RESP 18; TEMP 36.4; O2SAT 97
--- NOTE | 2021-06-29 12:28 | ED.UPPEXIN ---
HPI - Extremity Injury (Upper) General Chief Complaint: Extremity Injury, Upper Stated Complaint: hand pain Time Seen by Provider: 06/29/21 12:01 Source: RN notes reviewed History of Present Illness HPI narrative: Patient presents emergency department from home for right hand pain. Patient states that she has been having pain in the right palmar aspect of her hand for the past 2 days is progressively worsening. The pain is worse with trying to make a fist as well as gripping things trying to turn doorknobs. She denies any direct trauma or injury states she does have a history of carpal tunnel syndrome and has been seen in orthopedic physician is scheduled see him on Wednesday but she had seen him several weeks ago and had a cortisone drop that had helped at that time she states she is normally supposed be wearing a cock-up splint at night but did not wear it 2 days ago and awoken with the pain the next morning she denies any direct trauma or injury she is not been taking anything for pain at home she denies any fevers or chills numbness or tingling to the extremities or any other symptoms Related Data Home Medications Medication Instructions Recorded Confirmed irbesartan-hydrochlorothiazide tablet 02/14/21 02/14/21 Allergies Allergy/AdvReac Type Severity Reaction Status Date / Time No Known Allergies Allergy Verified 02/14/21 19:41 Review of Systems Review of Systems: Gen.: Denies fevers or chills Musculoskeletal: See HPI Neuro: Denies numbness, tingling, weakness Skin: Denies rash Endo: Denies DM PMFSH Past Medical History Medical History Anxiety Chronic headaches COPD (chronic obstructive pulmonary disease) Depression Dyspnea HTN (hypertension) Insomnia Obesity Sleep apnea Weight gain Family History Family History Other Diabetes mellitus Family history of arthritis Family history of gout Family history of kidney disease Hypertension Social History Social History Smoking packs per day: 1.5 Smoking cigarettes per day: 30.0 Years smoked: 9 Smoking pack-years: 13.50 Smoking status: Former smoker Tobacco type: cigarettes Smoking end date: 09/20/95 Alcohol intake: current Substance use: never Additional living arrangements comments: BOYFRIEND AND DAUGHTER Gender identity (if verbalized by the patient): Female Spiritual care concerns: No Exam Narrative: APPEARANCE: No acute distress, nontoxic, resting in bed Eyes: EOMI HEENT: Normocephalic, atraumatic, RESPIRATORY: No respiratory distress MUSCULOSKELETAl: Tender palpation over the right palmar wrist over the carpal tunnel and then mildly distally there is no swelling or erythema no ecchymosis there is no tenderness of the elbow full flexion-extension of the wrist with pain with full extension of the wrist full flexion-extension of all 5 MCP and IP joints with pain with flexion of the MCP and IP joints, radial pulse 2+ neurovascular intact capillary refill less than 3 seconds all 5 digits NEURO: Awake and alert. Following commands, speech normal, no focal deficits SKIN:: Warm, dry. Normal Color no rash or lesions Course Course Emergency Course: Discussed with patient results of workup and diagnosis. Discussed need for follow-up with primary care, proper use of medication, and reasons to return to the emergency department. Patient understands and agrees to current treatment plan. Discussed with patient need to wear cock-up splint at home and follow-up with orthopedics on Wednesday to schedule point Vital Signs Vital signs: Vital Signs Temperature 97.6 F 06/29/21 11:34 Pulse Rate 90 06/29/21 11:34 Respiratory Rate 18 06/29/21 11:34 Blood Pressure 151/84 H 06/29/21 11:34 Pulse Oximetry 97 06/29/21 11:34 Temperature 97.6 F 06/29/21 11:34 Pu
[2021-06-29] MEDS: IBUPROFEN 600 MG TABLET PO (12:42)
== END 2021-06-29 12:47 | disposition home or self-care (01) ==
PROVIDERS: Emergency Provider Emergency Medicine; PCP Physician Assistant
DX: G56.01 Carpal tunnel syndrome, right upper limb (principal); J44.9 Chronic obstructive pulmonary disease, unspecified; I10 Essential (primary) hypertension; G47.30 Sleep apnea, unspecified; E66.9 Obesity, unspecified; Z68.34 Body mass index [BMI] 34.0-34.9, adult; Z87.891 Personal history of nicotine dependence; M19.041 Primary osteoarthritis, right hand
CPT/HCPCS: 73120; 99283; A9270

== ENCOUNTER 2021-07-17 12:23 | Emergency (ER) | payer OTHER, SELFPAY ==
--- NOTE | ~2021-07-17 | XR_ITS ---
EXAMINATION: XR abdomen/kub 1V DATE: 07/17/2021 12:55 INDICATION: Nausea, vomiting, and diarrhea. TECHNIQUE: A supine view of the abdomen was obtained. COMPARISON: CT abdomen and pelvis 04/14/2020 FINDINGS: There are no dilated loops of bowel. Surgical clips in the right upper quadrant are likely from cholecystectomy. There is an intrauterine device in expected position. There are phleboliths in the pelvis. There are bilateral kidney stones. IMPRESSION: 1. Nonobstructive bowel gas pattern. 2. Bilateral kidney stones. Reviewed, dictated and finalized at location A.
--- NOTE | 2021-07-17 12:25 | ED.NAVMDI ---
HPI - Nausea/Vomiting/Diarrhea General Chief complaint: Nausea/Vomiting/Diarrhea Stated complaint: Vomiting,Diarrhea Time Seen by Provider: 07/17/21 12:25 Source: patient Mode of arrival: ambulatory Limitations: no limitations History of Present Illness HPI Narrative: Ms. Ruff is a 55-year-old female patient presenting to the clinic today with complaints of nausea, vomiting, and diarrhea. She reports she is also having some mid upper abdominal pain but she feels that this is from the vomiting and slumping over the sink to vomit. She reports no fever or chills. No known exposure to anybody with COVID, flu, or strep. Did take a at home COVID test yesterday and it was negative at that time. Has had multiple episodes of diarrhea today and 3 episodes of vomiting. No blood in stool. She is passing gas appropriately. Bowel movements prior to this illness were normal per patient did eat chicken and dumplings prior to the beginning of this illness however, other family members have also eaten the chicken and dumplings and no one else is sick in the home. No history of irritable bowel disease, inflammatory bowel disease, or Crohn's. MD elicited complaint: nausea, vomiting, diarrhea and abdominal pain Related Data Home Medications Medication Instructions Recorded Confirmed irbesartan-hydrochlorothiazide 1 tablet PO DAILY 02/14/21 07/17/21 levonorgestrel [Mirena] See Rx Instructions .ROUTE .COMPLEX 07/17/21 07/17/21 Allergies Allergy/AdvReac Type Severity Reaction Status Date / Time No Known Allergies Allergy Verified 07/17/21 12:25 Review of Systems Review of Systems: Pertinent positives per HPI. Patient denies any fever, chills, rash, headache, visual changes, dizziness, cough, runny nose, sore throat, shortness of breath, chest pain, palpitations, constipation, abdominal pain, or any urinary issues. PMFSH Past Medical History Medical History Anxiety Chronic headaches COPD (chronic obstructive pulmonary disease) Depression Dyspnea HTN (hypertension) Insomnia Obesity Sleep apnea Weight gain Family History Family History Other Diabetes mellitus Family history of arthritis Family history of gout Family history of kidney disease Hypertension Social History Social History Smoking packs per day: 1.5 Smoking cigarettes per day: 30.0 Years smoked: 9 Smoking pack-years: 13.50 Smoking status: Former smoker Tobacco type: cigarettes Smoking end date: 09/20/95 Alcohol intake: current Substance use: never Additional living arrangements comments: BOYFRIEND AND DAUGHTER Gender identity (if verbalized by the patient): Female Spiritual care concerns: No Comments At the time of my signature, I reviewed and agree with the nursing past medical, surgical, social, and family history. There is no relevant family history pertinent to the patient complaint. Exam Narrative: General: Well-developed, well nourished, in no apparent distress. Head: Normocephalic, atraumatic. Cardio: Regular rate and rhythm, s1 and s2 normal, no murmur appreciated. Resp: Clear to auscultation bilaterally, no rhonchi, rales, wheezing or rubs. Abdomen: Soft, pliable, generalized tenderness in all quadrants to palpation, bowel sounds present in all quadrants, no organomegly, no CVAT tenderness. Course Course Emergency Course: Portions of this record may have been created with voice recognition software. Level of Care: Express Care Visit Vital Signs Vital signs: Vital signs reviewed MDM - Nausea/Vomiting/Diarrhea MDM Narrative Medical decision making narrative: At the time of visit patient is resting comfortably on the exam table. She is reporting nausea, vomiting, and diarrhea x2 days. No known history of constipation. Influenza testi
[2021-07-17 12:35] VITALS: BP 139/94; PULSE 92; RESP 18; TEMP 35.7; O2SAT 100
== END 2021-07-17 13:19 | disposition home or self-care (01) ==
PROVIDERS: Emergency Provider Nurse Practitioner Family; PCP Physician Assistant
DX: A08.4 Viral intestinal infection, unspecified (principal); Z87.891 Personal history of nicotine dependence; J44.9 Chronic obstructive pulmonary disease, unspecified; I10 Essential (primary) hypertension; G47.30 Sleep apnea, unspecified; E66.9 Obesity, unspecified; Z68.32 Body mass index [BMI] 32.0-32.9, adult
CPT/HCPCS: 74018; 87804; 99213; G0463

== ENCOUNTER 2022-02-23 06:54 | Outpatient (CLI) | payer OTHER, SELFPAY ==
--- NOTE | ~2022-02-23 | XR_ITS ---
XR knee LT min 4V 02/23/2022 07:36 INDICATION: Left knee pain PROCEDURE: 4 views left ankle COMPARISON: 07/10/2012 FINDINGS: Fracture, dislocation or subluxation is not identified. The soft tissues appear within norm al limits. No foreign bodies are identified. IMPRESSION: 1: NO ACUTE BONE OR JOINT ABNORMALITY IDENTIFIED. Reviewed, dictated and finalized at location A. SITTER
--- NOTE | ~2022-02-23 | XR_ITS ---
EXAM: XR knee RT min 4V DATE: 02/23/2022 07:36 HISTORY: PAIN IN UNSPECIFIED KNEE NON TRAUMA . COMPARISON: 04/27/2017. FINDINGS: Normal mineralization. No fracture or dislocation. No lytic or blastic lesion. Mild osteoa rthritic change. No erosion or periosteal change. Soft tissues within normal limits. Small volume kne e joint effusion. IMPRESSION: No acute osseous finding in the right knee. Reviewed, dictated and finalized at location K. RAM STRATEGIST
== END 2022-02-23 06:55 | disposition home or self-care (01) ==
PROVIDERS: PCP Physician Assistant; Visit Provider Physician Assistant
DX: M25.561 Pain in right knee (principal); M25.562 Pain in left knee
CPT/HCPCS: 73564

== ENCOUNTER 2022-04-06 12:29 | Emergency (ER) | payer OTHER, SELFPAY ==
--- NOTE | ~2022-04-06 | XR_ITS ---
XR abdomen/kub 1V DATE: 04/06/2022 13:23 INDICATION: Bilateral lower abdominal pain. History of kidney stones. TECHNIQUE: 2 AP views COMPARISON: July 17, 2021 KUB FINDINGS: At least 2 small calcifications are noted overlying the left renal silhouette. There is a prominent amount of fecal and gas shadows overlying the renal silhouettes which may obscur e subtle renal calcified calculi. Noncontrast CT abdomen and pelvis examination would be more sensiti ve and accurate for detection of urinary tract calculi. No apparent calcifications overlying the ureters. A few stable chronic calcified pelvic phleboliths a re noted. IUD overlying pelvis. Surgical clips, right upper quadrant, consistent with cholecystectomy. No bowel obstruction is detected. Mild osteitis pubis. Degenerative changes of the lumbar spine. IMPRESSION: Left nephrolithiasis Status post cholecystectomy Reviewed, dictated and finalized at Location A. Reviewed, dictated and finalized at location B. S AND SERVICE ASSOCIATE
[2022-04-06 12:36] VITALS: BP 124/71; PULSE 86; RESP 18; TEMP 36.4; O2SAT 98
--- NOTE | 2022-04-06 13:00 | ED.FEMALEGU ---
HPI - Female Genitourinary General Chief complaint: Urogenital-Female Stated complaint: Possible UTI Time Seen by Provider: 04/06/22 13:10 Source: patient and RN notes reviewed Mode of arrival: ambulatory Limitations: no limitations History of Present Illness HPI Narrative: 56-year-old female presents concern for bilateral flank pain, urine frequency and urgency. She denies dysuria, vomiting, nausea, abdominal pain. She has a history of kidney stones. MD elicited complaint: flank pain Related Data Home Medications Medication Instructions Recorded Confirmed irbesartan 150 1 tablet PO DAILY 02/14/21 04/06/22 mg-hydrochlorothiazide 12.5 mg tablet levonorgestrel 20 mcg/24 hours (8 See Rx Instructions .Route .COMPLEX 07/17/21 04/06/22 yrs) 52 mg intrauterine device (Mirena) diclofenac sodium 75 mg 75 mg PO DAILY 04/06/22 04/06/22 tablet,delayed release Allergies Allergy/AdvReac Type Severity Reaction Status Date / Time No Known Allergies Allergy Verified 04/06/22 12:42 Review of Systems Review of Systems: CONSTITUTIONAL: Denies malaise, chills, sweats, or fever. CARDIOVASCULAR: Denies chest pain, palpitations, or edema. RESPIRATORY: Denies cough or dyspnea. GASTROINTESTINAL: Denies abdominal pain, nausea, vomiting, diarrhea GENITOURINARY: Reports frequency, urgency, bilateral flank pain. Denies dysuria or hematuria. SKIN: Denies rash or itching. MUSCULOSKELETAL: Denies back pain or myalgia. All systems reviewed & are unremarkable except as noted in HPI and below PMFSH Past Medical History Medical History Anxiety Chronic headaches COPD (chronic obstructive pulmonary disease) Depression Dyspnea HTN (hypertension) Insomnia Obesity Sleep apnea Weight gain Family History Family History Other Diabetes mellitus Family history of arthritis Family history of gout Family history of kidney disease Hypertension Social History Social History Smoking packs per day: 1.5 Smoking cigarettes per day: 30.0 Years smoked: 9 Smoking pack-years: 13.50 Smoking status: Former smoker Tobacco type: cigarettes Smoking end date: 09/20/95 Alcohol intake: current Substance use: never Additional living arrangements comments: BOYFRIEND AND DAUGHTER Gender identity (if verbalized by the patient): Female Spiritual care concerns: No Comments At time of signature, agree with nursing past medical, surgical, social and family history. There is no relevant family history pertinent to the presenting complaint Exam Narrative: GENERAL: Well-appearing, well-nourished, and in no acute distress. HEAD: Normocephalic. EYES: PERRLA, conjunctivae clear. NECK: Supple. No lymphadenopathy CHEST: Clear to auscultation. No respiratory distress. HEART: Regular rate and rhythm. ABDOMEN: Soft, nontender upon palpation, nondistended, normal active bowel sounds, no palpable or pulsatile masses, no guarding. Bilateral CVA tenderness SKIN: Warm, dry, no rash. NEURO: Alert and oriented x3. PSYCH: Normal mood and affect Course Course Emergency Course: Patient is aware of diagnosis, understands and agrees to treatment plan. Anticipatory guidance given. Patient agrees to follow-up as directed and is aware of reasons to seek care at the emergency department. Portions of this record may have been created with voice recognition software Level of Care: Express Care Visit Vital Signs Vital signs: Vital Signs Temperature 97.5 F L 04/06/22 12:36 Pulse Rate 86 04/06/22 12:36 Respiratory Rate 18 04/06/22 12:36 Blood Pressure 124/71 04/06/22 12:36 Pulse Oximetry 98 04/06/22 12:36 Oxygen Delivery Room Air 04/06/22 12:36 Temperature 97.5 F L 04/06/22 12:36 Pulse Rate 86 04/06/22 12:36 Respiratory R
== END 2022-04-06 13:47 | disposition home or self-care (01) ==
PROVIDERS: Emergency Provider Nurse Practitioner; PCP Physician Assistant
DX: N20.0 Calculus of kidney (principal); Z87.891 Personal history of nicotine dependence; J44.9 Chronic obstructive pulmonary disease, unspecified; I10 Essential (primary) hypertension; E66.9 Obesity, unspecified; Z68.34 Body mass index [BMI] 34.0-34.9, adult
CPT/HCPCS: 74018; 81003; 87086; 99213; G0463

== ENCOUNTER 2022-05-22 09:33 | Outpatient (CLI) | payer OTHER, SELFPAY ==
--- NOTE | ~2022-05-22 | XR_ITS ---
EXAMINATION: XR abdomen/kub 1V DATE: 05/22/2022 09:47 INDICATION: Bilateral kidney stones. TECHNIQUE: A supine view of the abdomen on 2 radiographs was obtained. COMPARISON: CT abdomen and pelvis 04/14/2020 FINDINGS: There are no dilated loops of bowel. Surgical clips in the right upper quadrant are likely from cholecystectomy. There is an intrauterine device in expected position. There is a phlebolith in left pelvis. The kidneys are obscured by bowel. IMPRESSION: 1. No visible urolithiasis. Reviewed, dictated and finalized at location A. CONCURRENT REVIEW IMPRESSION: 1. No visible urolithiasis.
== END 2022-05-22 09:34 | disposition home or self-care (01) ==
PROVIDERS: PCP Physician Assistant; Visit Provider Nurse Practitioner Adult Health
DX: N20.0 Calculus of kidney (principal)
CPT/HCPCS: 74018

== ENCOUNTER 2022-07-24 11:28 | Emergency (ER) | payer OTHER, SELFPAY ==
[2022-07-24 11:38] VITALS: BP 132/73; PULSE 97; RESP 18; TEMP 36.2; O2SAT 99
--- NOTE | 2022-07-24 12:02 | ED.URI ---
HPI - URI/Sore Throat General Chief Complaint: Upper Respiratory Infection Stated Complaint: Cough Time Seen by Provider: 07/24/22 11:55 Source: patient and RN notes reviewed Mode of arrival: ambulatory Limitations: no limitations History of Present Illness HPI Narrative: Patient presents today with a 3 week history of dry cough, chest tightness, and a few episodes of posttussive vomiting. Denies shortness of breath, congestion, rhinorrhea, sore throat, fever. She has been taking Robitussin, using cough drops, and Vicks Vaporub without relief. History of sleep apnea. Patient denies history of COPD, but it is noted in her chart. She is a former smoker, but quit approximately 25 years ago. She does have a nebulizer machine at home, but did not use it as she was unsure if it would be helpful to her. Related Data Home Medications Medication Instructions Recorded Confirmed irbesartan 150 1 tablet PO DAILY 02/14/21 07/24/22 mg-hydrochlorothiazide 12.5 mg tablet levonorgestrel 21 mcg/24 hours (8 See Rx Instructions .Route .COMPLEX 07/17/21 07/24/22 yrs) 52 mg intrauterine device (Mirena) diclofenac sodium 75 mg 75 mg PO DAILY 04/06/22 07/24/22 tablet,delayed release Allergies Allergy/AdvReac Type Severity Reaction Status Date / Time No Known Allergies Allergy Verified 07/24/22 11:38 Review of Systems Review of Systems: CONSTITUTIONAL: Denies body aches, fever, chills, or sweats. EYES: Denies visual changes, redness, or discharge. ENT: Denies rhinorrhea, congestion, sore throat, or otalgia. CARDIOVASCULAR: Denies chest pain, palpitations, or edema. RESPIRATORY: Denies dyspnea.+ cough, chest tightness GASTROINTESTINAL: Denies abdominal pain, nausea, vomiting, or diarrhea. GENITOURINARY: Denies dysuria or hematuria. SKIN: Denies rash, itching, or wounds. MUSCULOSKELETAL: Denies back pain, joint pain, or myalgia. NEUROLOGIC: Denies headache, numbness, tingling, or weakness. PSYCH: Denies depression or anxiety. [facility] Past Medical History Medical History Anxiety Chronic headaches COPD (chronic obstructive pulmonary disease) Depression Dyspnea HTN (hypertension) Insomnia Obesity Sleep apnea Weight gain Family History Family History Other Diabetes mellitus Family history of arthritis Family history of gout Family history of kidney disease Hypertension Social History Social History Smoking packs per day: 1.5 Smoking cigarettes per day: 30.0 Years smoked: 9 Smoking pack-years: 13.50 Smoking status: Former smoker Tobacco type: cigarettes Smoking end date: 09/20/95 Alcohol intake: current Substance use: never Living arrangements: with family Additional living arrangements comments: BOYFRIEND AND DAUGHTER Occupation/Education: occupation Gender identity (if verbalized by the patient): Female Spiritual care concerns: No Comments At time of signature, I have reviewed and agree with nursing past medical, surgical, social and family history unless otherwise noted. Please see nursing chart for further information. There is no relevant family history pertinent to the presenting complaint Exam Narrative: GENERAL: Well-appearing, well-nourished, and in no acute distress. HEAD: Normocephalic, atraumatic. EYES: EOMI. No redness or drainage. Conjunctivae normal. ENT: Mucous membranes pink and moist. Nares clear. No rhinorrhea. TMs normal bilaterally. Throat normal. Uvula midline. NECK: Normal AROM. Supple. No lymphadenopathy. CHEST: No respiratory distress. Clear to auscultation. HEART: Regular rate and rhythm. No murmur appreciated. Normal peripheral pulses. EXTREMITIES: Normal range of motion. No edema. SKIN: Warm, dry, no rash. Capillary refill normal. Normal skin turgor.
== END 2022-07-24 12:07 | disposition home or self-care (01) ==
PROVIDERS: Emergency Provider Nurse Practitioner; PCP Physician Assistant
DX: J40 Bronchitis, not specified as acute or chronic (principal); Z87.891 Personal history of nicotine dependence; J44.9 Chronic obstructive pulmonary disease, unspecified; I10 Essential (primary) hypertension; E66.9 Obesity, unspecified; Z68.33 Body mass index [BMI] 33.0-33.9, adult
CPT/HCPCS: 99213; G0463

== ENCOUNTER 2023-02-19 16:35 | Emergency (ER) | payer OTHER, SELFPAY ==
[2023-02-19 16:42] VITALS: BP 135/71; PULSE 89; RESP 16; TEMP 36.2; O2SAT 97
--- NOTE | 2023-02-19 16:48 | ED.URI ---
HPI - URI/Sore Throat General Chief Complaint: Upper Respiratory Infection Stated Complaint: Congestion,Lt Ear Irritation,Loss of Voice Source: patient, RN notes reviewed and old records reviewed Mode of arrival: ambulatory Limitations: no limitations History of Present Illness HPI Narrative: 57-year-old female presents with complaints of sinus congestion, sinus pain and pressure, left ear pressure, decreased hearing, with bloody drainage from nose. patient states started 10 days ago. patient doing saline nasal flushes and taking Sudafed with no relief. patient denies cough, fever, dizziness, nausea vomiting Related Data Home Medications Medication Instructions Recorded Confirmed irbesartan 150 1 tablet PO DAILY 02/14/21 02/19/23 mg-hydrochlorothiazide 12.5 mg tablet levonorgestrel 21 mcg/24 hours (8 See Rx Instructions .Route .COMPLEX 07/17/21 02/19/23 yrs) 52 mg intrauterine device (Mirena) Allergies Allergy/AdvReac Type Severity Reaction Status Date / Time No Known Allergies Allergy Verified 02/19/23 16:38 Review of Systems Constitutional: Constitutional: Reports no additional constitutional complaints Eyes: Eyes: Reports no additional eye complaints ENT: Reports as per HPI, Reports facial pain, Reports headache(s), Reports hoarseness, Reports nasal congestion, Reports nasal discharge and Reports nasal obstruction Cardiovascular: Cardiovascular: Reports no additional cardiovascular complaints Respiratory: Respiratory: Reports no additional respiratory complaints Neurologic: Reports system reviewed and no additional complaints, except as documented PMFSH Past Medical History Medical History Anxiety Chronic headaches COPD (chronic obstructive pulmonary disease) Depression HTN (hypertension) Insomnia Obesity Sleep apnea Surgical History Surgical History History of laparoscopic cholecystectomy 05/2011 History of laparoscopy ovarian cyst 2002 History of lithotripsy 06/2003, 07/2012, 03/08/2015 History of urethral stent placement 02/11/2015 removal 03/27/2015 History of uterine suspension procedure 05/2018 Family History Family History Other Diabetes mellitus Family history of arthritis Family history of gout Family history of kidney disease Hypertension Social History Social History Smoking packs per day: 1.5 Smoking cigarettes per day: 30.0 Years smoked: 9 Smoking pack-years: 13.50 Smoking status: Former smoker Tobacco type: cigarettes Smoking end date: 09/20/95 Alcohol intake: current Alcohol use details: social Substance use: never Substance use type: does not use Lack of Transportation: No Lack of Food: Never True Current Housing: I Have Housing Concerned About Future Housing: No Difficulty Paying Gas/Electric Bills: No Difficulty Paying for Meds: No Currently Unemployed: No Education: Trade/Vocational Certificate Difficulty w/ Childcare or Family Care: No Living arrangements: with family Additional living arrangements comments: BOYFRIEND AND DAUGHTER Occupation/Education: occupation Gender identity (if verbalized by the patient): Female Sexual Orientation (if Verbalized by the Patient): Straight or Heterosexual Spiritual care concerns: No Comments At the time of my signature, I reviewed and agree with the nursing past medical, surgical, social, and family history. There is no relevant family history pertinent to the patient complaint. Exam Const: General: cooperative, healthy appearing, no acute distress and well nourished Nutritional Appearance: well nourished Orientation/consciousness: patient oriented x3 Limitations: no limitations HENMT: Head: normal to inspection and norm
== END 2023-02-19 17:06 | disposition home or self-care (01) ==
PROVIDERS: Emergency Provider Registered Nurse; PCP Physician Assistant
DX: J01.90 Acute sinusitis, unspecified (principal); Z87.891 Personal history of nicotine dependence; J44.9 Chronic obstructive pulmonary disease, unspecified; I10 Essential (primary) hypertension; E66.9 Obesity, unspecified; Z68.32 Body mass index [BMI] 32.0-32.9, adult
CPT/HCPCS: 99213; G0463

== ENCOUNTER → 2023-02-25 10:23 | Outpatient (CLI) | payer OTHER, SELFPAY ==
--- NOTE | ~2023-02-25 | MR_ITS ---
MRI of the left knee Clinical history: Pain Technique: Coronal proton density and proton density-weighted images, sagittal proton-density and T2 fat-sat images, and axial proton-density fat-saturated images were acquired. Findings: Anterior and posterior cruciate ligaments are intact. Medial collateral ligament and the la teral collateral ligament complex are intact. Popliteus tendon is intact. There is complex tearing of the body segment of the medial meniscus. There is horizontal tear probabl y extending throughout the lateral meniscus, with a 6 mm parameniscal cyst present (coronal image 13) . There is mild chondral thinning in the medial compartment. Remaining articular cartilage is well pres erved. Bone marrow signals are unremarkable. Extensor mechanism is intact. Small to moderate joint effusion present. No Mon's cyst. Impression: Complex tearing of the body segment of the medial meniscus. Extensive horizontal lateral meniscal tear, with associated 6 mm parameniscal cyst, as detailed above . [id number] joint effusion. Reviewed, dictated and finalized at [facility]. [employer] Impression: Complex tearing of the body segment of the medial meniscus. Extensive horizontal lateral meniscal tear, with associated 6 mm parameniscal c yst, as detailed above. [id number] joint effusion.
== END ==
PROVIDERS: PCP Physician Assistant; Visit Provider Physician Assistant
DX: M25.562 Pain in left knee (principal)
CPT/HCPCS: 73721

== ENCOUNTER 2023-11-14 11:30 | Emergency (ER) | payer OTHER, SELFPAY ==
[2023-11-14 11:34] VITALS: BP 121/72; PULSE 70; RESP 16; TEMP 36.6; O2SAT 100
--- NOTE | 2023-11-14 11:59 | ED.WOUNDLAC ---
HPI - Wound/Laceration General Chief Complaint: Wound/Laceration Stated Complaint: head lac Time Seen by Provider: 11/14/23 11:49 History of Present Illness HPI narrative: 57-year-old female presenting with a head injury. Patient was closing her trunk and she did not move far enough away and she slammed the corner of the door into the top of her head. Sustained a laceration and there was copious amounts of blood so her neighbor told her to come on in to get checked out. No loss of consciousness, no neck or back pain. Complains of a very mild headache. No nausea. No further complaint. Tdap is not up-to-date. Related Data Home Medications Medication Instructions Recorded Confirmed levonorgestrel 21 mcg/24 hr (up to See Rx Instructions .Route .COMPLEX 07/17/21 02/23/23 8 years) 52 mg intrauterine device (Mirena) Allergies Allergy/AdvReac Type Severity Reaction Status Date / Time prednisone AdvReac Intermediate Sweating Verified 11/14/23 12:03 Review of Systems Review of Systems: All systems reviewed & are unremarkable except as noted in HPI and below PMFSH Past Medical History Medical History Anxiety Chronic headaches COPD (chronic obstructive pulmonary disease) Depression HTN (hypertension) Insomnia Obesity Sleep apnea Surgical History Surgical History History of laparoscopic cholecystectomy 05/2011 History of laparoscopy ovarian cyst 2002 History of lithotripsy 06/2003, 07/2012, 03/08/2015 History of urethral stent placement 02/11/2015 removal 03/27/2015 History of uterine suspension procedure 05/2018 Family History Family History Other Diabetes mellitus Family history of arthritis Family history of gout Family history of kidney disease Hypertension Social History Social History Smoking packs per day: 1.5 Smoking cigarettes per day: 30.0 Years smoked: 9 Smoking pack-years: 13.50 Smoking status: Former smoker Tobacco type: cigarettes Smoking end date: 09/20/95 Alcohol intake: current Alcohol use details: social Substance use: never Substance use type: does not use Lack of Transportation: No Lack of Food: Never True Current Housing: I Have Housing Concerned About Future Housing: No Difficulty Paying Gas/Electric Bills: No Difficulty Paying for Meds: No Currently Unemployed: No Education: Trade/Vocational Certificate Difficulty w/ Childcare or Family Care: No Living arrangements: with family Additional living arrangements comments: BOYFRIEND AND DAUGHTER Occupation/Education: occupation Gender identity (if verbalized by the patient): Female Sexual Orientation (if Verbalized by the Patient): Straight or Heterosexual Spiritual care concerns: No Exam Narrative: GENERAL: Well-appearing, In no acute distress, pleasant cooperative HEAD: Normocephalic, 2 cm linear laceration to right frontal scalp EYES: PERRLA and EOMI. ENT: grossly unremarkable NECK: Supple. no midline tenderness CHEST: No respiratory distress. HEART: Regular rate and rhythm EXTREMITIES: Normal range of motion. SKIN: Warm, dry, laceration above NEURO: No focal deficits. Alert and oriented x3. PSYCH: Normal mood and affect. Course Vital Signs Vital signs: Vital Signs Temperature 98 F 11/14/23 11:34 Pulse Rate 70 11/14/23 11:34 Respiratory Rate 16 11/14/23 11:34 Blood Pressure 121/72 11/14/23 11:34 Pulse Oximetry 100 11/14/23 11:34 Temperature 98 F 11/14/23 11:34 Pulse Rate 70 11/14/23 11:34 Respiratory Rate 16 11/14/23 11:34 Blood Pressure 121/72 11/14/23 11:34 Pulse Oximetry 100 11/14/23 11:34 Procedures Laceration Laceration 1: Date: 11/14/23
[2023-11-14] MEDS: TETANUS,DIPHTHERIA,AC PERTUSSIS ADULT (0.5 ML) BOOSTRIX IM (12:03)
[2023-11-14] MEDS: LIDOCAINE, EPINEPHRINE, TETRACAINE VISCOUS SOLN 3 ML TOPICAL (12:09)
--- NOTE | 2023-11-14 12:10 | PC.NURSE ---
Let applied to patient wound on head
== END 2023-11-14 13:18 | disposition home or self-care (01) ==
PROVIDERS: Emergency Provider Emergency Medicine; PCP Physician Assistant
DX: S01.01XA Laceration without foreign body of scalp, initial encounter (principal); F41.9 Anxiety disorder, unspecified; J44.9 Chronic obstructive pulmonary disease, unspecified; F32.A Depression, unspecified; I10 Essential (primary) hypertension; G47.30 Sleep apnea, unspecified; W20.8XXA Other cause of strike by thrown, projected or falling object, initial encounter; Z23 Encounter for immunization
CPT/HCPCS: 12001; 90471; 90715; 99282

== ENCOUNTER 2024-05-26 15:54 | Outpatient (CLI) | payer OTHER, SELFPAY ==
--- NOTE | ~2024-05-26 | CT_ITS ---
EXAMINATION: CT abdomen pelvis wo con DATE: 05/26/2024 16:20 INDICATION: Nephrolithiasis TECHNIQUE: Computed tomography (CT) of the abdomen and pelvis was performed without intravenous contr ast. Automated exposure control and iterative reconstruction technique were employed. The dose-length product was 238.76 mGy-cm. COMPARISON: None FINDINGS: Discoid atelectasis at the lingula. Heart size is normal. No pericardial or pleural effusion. Cholecy stectomy clips at the gallbladder fossa. Liver, spleen, pancreas and bilateral adrenal glands are nor mal. Bilateral nonobstructing nephrolithiasis with 2 stones at the right kidney the largest at the re nal pelvis measuring 5 mm and 2 stones in the left kidney measuring up to 3 mm. No ureteral stones or hydronephrosis. Bladder is normal. T-shaped IUD in expected position within the anteverted uterus. B ilateral adnexa are unremarkable. Bowels including the appendix are normal. No free intraperitoneal g as or fluid. No pathologically enlarged abdominal or pelvic lymphadenopathy. Anterior and posterior s lizette fusion at L5-S1. Mild to moderate spondylosis and more cephalad lumbar and lower thoracic spine . IMPRESSION: 1. Bilateral nonobstructing nephrolithiasis. Reviewed, dictated and finalized at location B. CE AND SHAVE PRESS OPERATOR
--- OUTSIDE RECORDS SUMMARY | 2024-05-26 16:01 | XMS_ITS | Clinical Summary ---
Author Organization [facility] Address [address] [place] [id number] Care Team Providers Care Crown Presser Name Role Phone Joslyn Espino Primary Care Provider [phone] Allergies Active Allergy Reactions Criticality Noted Date Comments Prednisone Dizziness,Sweating Low 04/26/2023 Medications meloxicam (MOBIC) 15 mg tabletIndicatio ns:Osteoarthrit is Take 1 tablet (15 mg total) by mouth every morning Active albuterol 2.5 mg /3 mL (0.083 %) nebulizer solution Take 3 mL (2.5 mg total) by nebulization every 4 (four) hours as needed for wheezing Active albuterol HFA (PROVENTIL HFA,VENTOLIN HFA,PROAIR HFA) 90 mcg/actuation inhaler INHALE 1 PUFF BY MOUTH EVERY 4 HOURS NEEDED Active fluticasone propionate (FLONASE) 50 mcg/actuation nasal spray Administer into each nostril daily as needed Active irbesartan-hydr ochlorothiazide (AVALIDE) 150-12.5 mg per tabletIndicatio ns:hypertension Take 1 tablet by mouth every morning Active triamcinolone (Kenalog) 10 mg/mL injection in office 3 Active apple cider vinegar 600 mg capsuleIndicati ons:supplement Take 1 capsule by mouth every morning Active glucosamine-msm -magnesium-vitC capsuleIndicati ons:supplement Take 1 capsule by mouth every morning Active TURMERIC ORALIndications :supplement Take 1,006 mg by mouth every morning Active ibuprofen 200 mg tab/cap Take 1 tablet/capsule (200 mg total) by mouth every 8 (eight) hours as needed for pain Active acetaminophen (TYLENOL ARTHRITIS ORAL)Indication s:supplement Take 1 tablet by mouth as needed Active meloxicam (MOBIC) 15 mg tablet Take 1 tablet (15 mg total) by mouth daily for 10 days 10 tablet 4 Active HYDROcodone-enrique taminophen (NORCO) 5-325 mg per tabletIndicatio ns:Pain Take 1-2 tablets by mouth every 6 (six) hours as needed for pain 12 tablet 4 Active Active Problems Problem Noted Date Diagnosed Date Effusion of left knee 06/21/2023 S/P arthroscopic partial medial meniscectomy of left knee 05/24/2023 S/P arthroscopic partial lateral meniscectomy of left knee 05/24/2023 Chronic pain of left knee 04/26/2023 Complex tear of medial menis cus of left knee as current injury 04/26/2023 Tear of lateral meniscus of left knee, current 0 04/26/2023 Carpal tunnel syndrome of right wrist 08/05/2021 Osteoarthritis of both hands 08/05/2021 Surgical History Surgery Date Site/Laterality Comments BLADDER SUSPENSION 03/22/2004 - 03/21/2005 CHOLECYSTECTOMY 03/22/1999 - 03/21/2000 KIDNEY STONE SURGERY 03/22/2020 - 03/21/2021 multiply CARPAL TUNNEL RELEASE 03/22/2020 - 03/21/2021 Right BREAST BIOPSY 03/22/2018 - 03/21/2019 Right Medical History Medical History Date Comments Kidney stones Gall bladder disease 2009 S/P carpal tunnel release PONV (postoperative nausea and vomiting) Sleep apnea Family History Medical History Relation Name Comments Kidney disease Brother Arthritis Father Diabetes Father Hypertension Father Stroke Father Arthritis Mother Hypertension Mother Anesthesia problems Neg Hx Relation Name Status Comments Brother Father Mother Social History Tobacco Use Types Packs/Day Years Used Date Smoking Tobacco: Former Cigarettes Q uit: 1999 Smokeless Tobacco: Never AUDIT-C Answer Date Recorded Q1: How often do you have a drink containing alc ohol? Monthly or less 04/27/2023 Q2: How many drinks containi ng alcohol do you have on a typical day when you are drinking? 1 or 2 04/27/2023 Q3: How often do you have si x or more drinks on one occasion? Never 04/27/2023 Personal Safety Answer Date Recorded Have you ever been in or are you currently in a harmful physical or emotional relationship or is someone making you feel afraid or unsafe? Denies 05/12/2023 Comments No Sex and Gender Information Value Date Recorded Sex Assigned at Not on file Legal Sex Female 1:40 PM EQUIPMENT MAINTENANCE SUPERVISOR Gender Identity Not on file Sexual Orientation Not on file Obstetrics History Last Filed Vital Signs Vital Sign Reading Time Taken Comments Blood Pressure 105/59 05/12/2023 9:55 AM EQUIPMENT MAINTENANCE SUPERVISOR Pulse 78 05/12/2023 10:05 AM EQUIPMENT MAINTENANCE SUPERVISOR Temperature 36 C (96.8 F) 05/12/2023 10:05 AM EQUIPMENT MAINTENANCE SUPERVISOR Respiratory Rate 22 05/12/2023 10:05 AM EQUIPMENT MAINTENANCE SUPERVISOR Oxygen Saturation 95% 05/12/2023 10:05 AM EQUIPMENT MAINTENANCE SUPERVISOR Inhaled Oxygen Concentration - - Weight 94.8 kg (209 lb) 05/12/2023 6:32 AM EQUIPMENT MAINTENANCE SUPERVISOR Height 165.1 cm (5' 5 ) 05/12/2023 6:32 AM EQUIPMENT MAINTENANCE SUPERVISOR Body Mass Index 34.78 05/12/2023 6:32 AM EQUIPMENT MAINTENANCE SUPERVISOR Plan of Treatment Health Maintenance Due Date Last Done Comments Breast Cancer Screening-Mammogram 1965 Cervical Cancer Screening 1965 Colon Cancer Screening-Colonoscopy 1965 Depression Screening 1965 Hepatitis C Screening 1965 Hepatitis B Screening 12/23/1983 Regular Well Visit/Exam 18-64 12/23/1983 Zoster Vaccine (1 of 2) 12/23/2015 Covid-19 Vaccine (2 - 2023-2 5 season) 2023 08/26/2020 Influenza Vaccine (#1) 2023 0, 12/31/2014 DTaP/Tdap/Td Vaccine (2 - Td or Tdap) 04/12/2026 04/12/2016 Pneumococcal vaccine <65 Aged Out No longer eligible based on patient's age to complete this topic Medical Devices Implanted Type Area Health Care / Medical Job Titles Device Identifier Shelf Expiration Date Model / Serial / Lot Clip Clip Left: Breast Insurance [place] [id number] Advance Directives For more information, please contact: [phone] * Full Code (Latest Code Status on File) Date Activated Date Inactivated Comments 05/12/2023 8:53 AM 05/12/2023 2:29 PM Care Teams Crown Presser Relationship Specialty Start Date End Date Joslyn Espino PA [address] [place] [address] PCP - General Family Medicine 04/26/23
--- OUTSIDE RECORDS SUMMARY | 2024-05-26 16:01 | XMS_ITS | Referral Summary ---
Author Organization [facility] Address [address] [place] [id number] Care Team Providers Care Fire Technology Instructor Name Role Phone Joslyn Espino Primary Care Provider Allergies Active Allergy Reactions Criticality Noted Date [...] wrist 08/05/2021 Osteoarthritis of both hands 08/05/2021 Social History Tobacco Use Types Packs/Day Years [...] on file Legal Sex Female 1:40 PM MEDICAL OFFICE RECEPTIONIST Gender Identity Not on file Sexual Orientation Not on file Last Filed Vital Signs Vital Sign Reading Time Taken Comments Blood Pressure 105/59 05/12/2023 9:55 AM MEDICAL OFFICE RECEPTIONIST Pulse 78 05/12/2023 10:05 AM MEDICAL OFFICE RECEPTIONIST Temperature 36 C (96.8 F) 05/12/2023 10:05 AM MEDICAL OFFICE RECEPTIONIST Respiratory Rate 22 05/12/2023 10:05 AM MEDICAL OFFICE RECEPTIONIST Oxygen Saturation 95% 05/12/2023 10:05 AM MEDICAL OFFICE RECEPTIONIST Inhaled Oxygen Concentration - - Weight 94.8 kg (209 lb) 05/12/2023 6:32 AM MEDICAL OFFICE RECEPTIONIST Height 165.1 cm (5' 5 ) 05/12/2023 6:32 AM MEDICAL OFFICE RECEPTIONIST Body Mass Index 34.78 05/12/2023 6:32 AM MEDICAL OFFICE RECEPTIONIST Plan of Treatment Not on file Medical Devices Implanted Type Area Dust Collector Device Identifier Shelf Expiration Date Model / Serial / Lot Clip Clip Left: Breast Insurance Advance Directives For more information, please contact: [phone] * Full Code (Latest Code Status on File) Date Activated Date Inactivated Comments 05/12/2023 8:53 AM 05/12/2023 2:29 PM Care Teams Fire Technology Instructor Relationship Specialty Start Date End Date Joslyn Espino PA [address] [place] [address] PCP - General Family Medicine 04/26/23
== END 2024-05-26 15:55 | disposition home or self-care (01) ==
LOC: ANHIMG 15:59
PROVIDERS: PCP Family Medicine
DX: Z87.442 Personal history of urinary calculi (principal); R10.9 Unspecified abdominal pain; R31.9 Hematuria, unspecified; N20.0 Calculus of kidney
CPT/HCPCS: 74176

== ENCOUNTER 2024-06-02 09:50 | Outpatient (CLI) | payer OTHER, SELFPAY ==
--- NOTE | ~2024-06-02 | XR_ITS ---
EXAMINATION: XR hand BI arthritis min 3V DATE: 06/02/2024 10:13 INDICATION: Pain in right hand. TECHNIQUE: 4 views of right hand and 4 views of left hand on a total of 8 radiographs were obtained. COMPARISON: Right hand radiographs 06/29/2021 FINDINGS: RIGHT HAND: Alignment is normal. No fracture. There is mild osteoarthritis of first carpometacarpal j oint, fourth and fifth proximal interphalangeal joints, and first interphalangeal joint. There is mod erate osteoarthritis of second and third fifth distal interphalangeal joints. LEFT HAND: Alignment is normal. No fracture. There is severe osteoarthritis of first carpometacarpal joint, mild osteoarthritis of fifth proximal interphalangeal joint, moderate osteoarthritis of third and fifth distal interphalangeal joints, severe osteoarthritis of second and fourth distal interphala ngeal joints. IMPRESSION: 1. Polyarticular osteoarthritis. Reviewed, dictated and finalized at location L.
--- OUTSIDE RECORDS SUMMARY | 2024-06-02 10:34 | XMS_ITS | Data Portability ---
Author Organization [place] - [facility], Main Office Address [address] [place] [address] Care Team Providers Care Blood Typer Name Role Phone NADER LING Primary Care Provider NADER LING Referring Provider Assessment Encounter Date Assessment Date Assessment LastModified by Organization Details LastModified Time 03/10/2023 03/10/2023 HPI: 57-year-old female came in today for evaluation of her left knee pain. She has been having pain for about a year. She has been having treatments done with her primary care doctor. She has had 2 cortisone injections in knee the last 1 was in August. Initially when she started having symptoms she is having pain in both knees early this year and her primary care doctor put her on diclofenac. The right knee seemed to quiet down very quickly the left knee has not. She has been through formal physical therapy on the knee, this was in November. She did not get improvement from that. An MRI scan was subsequently ordered former primary care doctor that she brought in today. 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 She also has to wear heavy steel toed shoes and is on concrete walking most of her shift. She notes that at the beginning of the shift the knee is very tolerable and as the day progresses pain worsens. She points directly at the medial joint line where she feels the discomfort. She has no catching or locking symptoms in the knee. Patient was not getting improvement from the diclofenac and for the last 2-3 months her primary care doctor switch her to meloxicam 15 mg daily. Has not noticed much improvement on that. Patient's MRI scan was reviewed. She does have a moderate effusion. She has significant cartilage wear the trochlear groove. cartilage flare of the patella looks relatively normal. There is no cystic changes of the patellofemoral joint. She does have horizontal cleavage tear in the lateral meniscus with a small parameniscal cyst noted. She also has a tear of the medial meniscus that does go to the surface on 2 views. That this is not a Look like there is a flap component. There is no bony edema noted on the MRI. Physical exam: 57-year-old female she is 5 ft 5 in 211 lb her BMI is 34.6 today. She has just a minimal effusion left knee. Range of motion is from 2-135 degrees. Hip range of motion is full without discomfort. She has some mild pain with patellofemoral grind. No lateral joint line tenderness. Moderate pain palpation of the mid medial joint line. Negative Esther's testing. Normal stability in the knee to varus valgus stress. Negative Sahil's. No edema in lower extremities. 2+ dorsalis pedis pulse. After ChloraPrep was used on skin 20 mg Kenalog and 3 cc of 0.5% ropivacaine was injected into the left knee. Impression: 57-year-old female does have moderate to moderately severe medial compartment arthritis on x-rays. She also does have a medial meniscus tear seen on the MRI scan. Again she is complaining of no catching locking symptoms in the knee. I think that most likely symptoms more related to arthritis rather than tear. I discussed these findings with her. Also the fact that she has a job that requires her to be on her feet for extended periods time and her BMI is 34 today. Discussed the MRI findings with the patient as well as the x-ray findings. She is young and at some point is going to and need a total knee replacement given the arthritic changes on the x-rays and also the fact that she does have tearing of the lateral meniscus which would not make her a candidate for partial knee replacement. I recommended that she work on weight loss. Gave her handout on weight loss as I think this will help her a lot if she can get her weight down. We talked about a cortisone injection which she would like to try again today. See her in a month for re-evaluation. Certainly if the anti-inflammatori es and cortisone under not making significant improvement arthroscopy being may need to be discussed. If she is doing very well in a month she can call and cancel. Did talk with her that we can repeat cortisone injections every 3 months she will keep that in mind as well. [email or web address] Not available 03/10/2023 10:42:39 Plan of Treatment Reminders Order Date Submit Date Provider Last Modified By Organization Details Last Modified Time Details Appointments None recorded. Lab None recorded. Referral None recorded. Procedures injection/a spiration joint/bursa (PROC) - in office procedure, administere d by provider 2022 023 [email or web address] In-Office Order, Internal Use Only DO Not Attach Compendium DO Not Attach Compendium, Do Not Delete/merge, [id number] 10:27:46 Surgeries None recorded. Imaging XR, knee 2022 023 [email or web address] [facility], [address], [place], [address], 13:06:36 Medication Orders Kenalog 10 mg/mL suspension for injection 2022 023 [place] [address] [id number], [address] [place], [place], [id number], 3 13:06:36 ropivacaine (PF) 5 mg/mL (0.5 %) [id number], [address] [place], [place], [id number], 3 13:06:36 Patient TargetsNo targets recorded. Patient InstructionsNo instructions recorded. Reason for Referral None Reported. Results Created Date Observation Date Name Description Value Unit Range Abnormal Flag Note LastModifiedBy Organization Detail LastModifiedTime 07/02/19 22 XR, hand, 3 or more view No observ ation record ed. [id number] [facility] [place] [address], [place], [address], 05/21/2022 00:36:00 03/01/20 23 02/25/2023 MRI, knee, w/o contr ast No observ ation record ed. [email or web address] Not Available 02/19 16:09:02 03/10/20 XR, knee No observ ation record ed. [email or web address] [facility] [place] [address], [place], [address], 03/10/2023 10:35:33 Result Notes None recorded. Problems Name Problem SNOMED Code Status Onset Date Resolution Date Notes Provider Name and Address Organization Details Recorded Time Osteoarthr itis of joint of bilateral hands 7727124653529 09 Active 2021 Not Available [facility] 3 00:35:17 Pain of bilateral hands 6612114967909 9109 Active 2021 Not Available [facility] 3 00:35:17 Carpal tunnel syndrome of right wrist 0519729495977 08 Active 2021 Not Available [facility] 3 00:35:17 Pain of left knee joint 7210311387590 07 Active 2022 ANIYAH [place]illed[place], [place] - [facility] 3 09:08:46 Problem Notes None recorded. Procedures Surgical History Date Name Laterality Status Provider Name and Address Organization Details Recorded Time Kidney Stones completed Not Available [facility] 05/21/2022 00:34:18 Imaging Results Imaging Date Name Status LastModified by Organiz ation Details LastModified Time 07/01/2021 XR, hand, 3 or more view completed [id number] [facility] [place] [address], [place], [address], 05/21/2022 00:36:00 02/25/2023 MRI, knee, w/o contrast completed [email or web address] Information not available 03/01/2023 16:09:02 03/10/2023 XR, knee completed [email or web address] [facility] [place] [address], [place], [address], 03/10/2023 10:35:33 Procedure Notes None recorded. Medical Equipment None Reported. Allergies Allergen ID Allergen Name Allergen Category Reaction Reaction Severity Criticality Documentation Date Start Date Code Code System Note Provider Name and Address Organization Details Recorded Time 87191 prednison e medicatio n Not available Not available Not available 03/10/2023 8640 RxNorm ANIYAH [place] [facility] 09:04:56 Medications Name Sig Start Date Stop Date Status Note LastModified by Organization Details LastModified Time doxycycline hyclate 100 mg capsule TAKE 1 CAPSULE BY MOUTH TWICE DAILY FOR 10 DAYS 07/01 completed Not Available Not Available Not Available paroxetine 10 mg tablet TAKE 1 TABLET BY MOUTH EVERY DAY IN THE MORNING 03/10 completed Not Available Not Available Not Available albuterol sulfate 2.5 mg/3 mL (0.083 %) solution for nebulizatio n USE ONE VIAL IN NEBULIZER EVERY 4 HOURS NEEDED FOR SHORTNESS OF BREATH OR WHEEZING active Not Available Not Available No t Available irbesartan 150 mg-hydrochl orothiazide 12.5 mg tablet TAKE 1 TABLET BY MOUTH EVERY DAY active Not Available Not Available No t Available benzonatate 200 mg capsule TAKE 1 CAPSULE BY MOUTH THREE TIMES DAILY FOR 10 DAYS NEEDED 07/01 completed Not Available Not Available Not Available hydrocodone 5 mg-acetamin ophen 325 mg tablet TAKE 1 TABLET BY MOUTH EVERY 6 HOURS NEEDED FOR PAIN 03/10 completed Not Available Not Available Not Available meloxicam 15 mg tablet TAKE 1 TABLET BY MOUTH DAILY active Not Available Not Available No t Available prednisone 20 mg tablet TAKE 3 TABLETS BY MOUTH DAILY 07/01 completed Not Available Not Available Not Available alclometaso ne 0.05 % topical cream 03/10 completed Not Available Not Available Not Available tramadol 50 mg tablet TAKE 1 TABLET BY MOUTH EVERY 6 HOURS NEEDED FOR PAIN 03/10 completed Not Available Not Available Not Available tamsulosin 0.4 mg capsule TAKE 1 CAPSULE BY MOUTH DAILY 03/10 completed Not Available Not Available Not Available Kenalog 10 mg/mL suspension for injection in office 2022 active [facility]: 0003- 0494- 20 Not Available Not Available Not Available prednisone 50 mg tablet TAKE 1 TABLET BY MOUTH DAILY FOR 5 DAYS 03/10 completed Not Available Not Available Not Available diclofenac sodium 75 mg tablet,alejandra yed release TAKE 1 TABLET BY MOUTH TWICE DAILY NEEDED 03/10 completed Not Available Not Available Not Available ibuprofen 600 mg tablet TAKE 1 TABLET BY MOUTH EVERY 6 HOURS NEEDED FOR PAIN 03/10 completed Not Available Not Available Not Available cefuroxime axetil 500 mg tablet TAKE 1 TABLET BY MOUTH EVERY 12 HOURS 07/01 completed Not Available Not Available Not Available albuterol sulfate HFA 90 mcg/actuati on aerosol inhaler INHALE 1 PUFF BY MOUTH EVERY 4 HOURS NEEDED active Not Available Not Available No t Available ondansetron 4 mg disintegrat ing tablet DISSOLVE 1 TABLET ON THE TONGUE EVERY 6 HOURS FOR 3 DAYS NEEDED FOR NAUSEA OR VOMITING 03/10 completed Not Available Not Available Not Available fluticasone propionate 50 mcg/actuati on nasal spray,suspe nsion SHAKE LIQUID AND USE 1 SPRAY IN EACH NOSTRIL TWICE DAILY NEEDED FOR NASAL CONGESTIO N active Not Available Not Available No t Available amoxicillin 875 mg-potassiu m clavulanate 125 mg tablet TAKE 1 TABLET BY MOUTH EVERY 12 HOURS FOR 10 DAYS 03/10 completed Not Available Not Available Not Available Flovent HFA 220 mcg/actuati on aerosol inhaler INHALE 1 PUFF BY MOUTH TWICE DAILY 03/10 completed Not Available Not Available Not Available ropivacaine (PF) 5 mg/mL (0.5 %) injection solution in office 2022 active Not Available Not Available Not Avai lable ID NOW COVID-19 Test Kit TEST DIRECTED TODAY active Not Available Not Available No t Available Vitals Date Recorded Body mass index (BMI) Body height Pain severity - 0-10 verbal numeric rating [Score] - Reported Body weight Provider Name and Address Organization Details Last Updated DateTime 07/01/2021 33.3 kg/m2 165.1 cm 6 40445.47 g Not Available [facility] 05/21/2022 00:35:00 Date Recorded Body mass index (BMI) Body height Pain severity - 0-10 verbal numeric rating [Score] - Reported Body weight Provider Name and Address Organization Details Last Updated DateTime 08/05/2021 33.3 kg/m2 165.1 cm 1 21128.47 g Not Available [facility] 05/21/2022 00:35:00 Date Recorded Body mass index (BMI) Body height Body weight Provider Name and Address Organization Details Last Updated DateTime 08/12/2021 33.3 kg/m2 165.1 cm 43863.47 g Not Available [facility] 05/21/2022 00:35:00 Date Recorded Body mass index (BMI) Body height Pain severity - 0-10 verbal numeric rating [Score] - Reported Body weight Provider Name and Address Organization Details Last Updated DateTime 10/22/2021 33.3 kg/m2 165.1 cm 0 56732.47 g Not Available [facility] 05/21/2022 00:35:00 Date Recorded Body height Body mass index (BMI) Body weight Provider Name and Address Organization Details Last Updated DateTime 03/10/2023 166.37 cm 34.6 kg/m2 80686.99 g ANIYAH [place] [facility] 03/10/2023 09:19:31 Social History Question Answer Notes LastModified by Organizat ion Details LastModified Time Tobacco Smoking Status Former Smoker Not Available [facility] 05/21/2022 00:34:13 What Is Your Level Of Alcohol Consumption? Occasional [id number] Information not available 05/21/2022 When Did You [facility] Sm[facility]? [facility] [id number] Information not available 05/21/2022 What Was The Date Of Your Most Recent Tobacco Screening? 07/01/2021 [id number] Information not available 05/21/2022 Sex: Unknown Functional Status None recorded. Mental Status None recorded. Family History Relationship Description Onset Age of this Age Resolved Age Notes LastModified by Organization Details LastModified Time Father Family history of stroke [id number] Not available 05/21/2022 00:34:19 Father Hypertensive disorder [id number] Not available 05/21/2022 00:34:19 Father Diabetes mellitus [id number] Not available 05/21/2022 00:34:19 Maternal Grandmother Family history of malignant neoplasm Not available 2022 09:06:47 Medical History Condition Response ULCERS Y URINARY/BLADDER/KIDNEY PROBLEMS Y HYPERTENSION Y Gynecological HistoryNo gynecological history recorded. Obstetrics History GPAL:G 0 P 0 0 0 0 Past Encounters Encounter ID Performer Location Encounter Start Date Encounter Closed Date Diagnosis/Indication Diagnosis SNOMED-CT Code Diagnosis ICD10 Code Diagnosis Note [id number] [facility] [place] [address] [place] [address] 07/01/2021 00:00:00 07/01/2021 12:27:30 [id number] [facility] [place] [address] [place] [address] 08/05/2021 00:00:00 08/05/2021 11:06:39 [id number] [facility] [place] [address] [place] [address] 08/12/2021 00:00:00 08/12/2021 17:57:14 [id number] [facility] [place] [address] [place] [address] 10/22/2021 00:00:00 10/22/2021 14:36:34 [id number] RIMMA Garza [facility] [place] [address] [place] [address] 03/10/2023 08:37:45 03/10/2023 11:15:58 Pain of left knee joint 1397767243 50403 M25.562 Health Concerns Section Related Observation LastModified by Organization Detai ls LastModified Time None Recorded Concern Status LastModified by Organization Details LastModified Time None Recorded Advance Directives Directive None Recorded Payers Encounter Date Sequence Insurance Name Policy Number Policy Chiang Covered Member ID Chiang Member ID Guarantor Name 03/10/2023 1 [facility] [employer] [employer] [id number] Sherrell Take [id number] Sherrell Take OBGyn Episode No OBEpisode recorded.
--- OUTSIDE RECORDS SUMMARY | 2024-06-02 10:34 | XMS_ITS | Clinical Summary ---
Author Organization [facility] Address [address] [place] [address] Care Team Providers Care Landscape Crew Member Name Role Phone Joslyn Espino Primary Care Provider [phone] Allergies Active Allergy Reactions Criticality Noted Date [...] on file Legal Sex Female 1:40 PM ROUSTABOUT SUPERVISOR Gender Identity Not on file Sexual Orientation Not on file Obstetrics History Last Filed Vital Signs Vital Sign Reading Time Taken Comments Blood Pressure 105/59 05/12/2023 9:55 AM ROUSTABOUT SUPERVISOR Pulse 78 05/12/2023 10:05 AM ROUSTABOUT SUPERVISOR Temperature 36 C (96.8 F) 05/12/2023 10:05 AM ROUSTABOUT SUPERVISOR Respiratory Rate 22 05/12/2023 10:05 AM ROUSTABOUT SUPERVISOR Oxygen Saturation 95% 05/12/2023 10:05 AM ROUSTABOUT SUPERVISOR Inhaled Oxygen Concentration - - Weight 94.8 kg (209 lb) 05/12/2023 6:32 AM ROUSTABOUT SUPERVISOR Height 165.1 cm (5' 5 ) 05/12/2023 6:32 AM ROUSTABOUT SUPERVISOR Body Mass Index 34.78 05/12/2023 6:32 AM ROUSTABOUT SUPERVISOR Plan of Treatment Health Maintenance Due [...] this topic Medical Devices Implanted Type Area Facilities Manager Device Identifier Shelf Expiration Date Model / Serial / Lot Clip Clip Left: Breast [place] [id number] Advance Directives For more information, please contact: [phone] * Full Code (Latest Code Status on File) Date Activated Date Inactivated Comments 05/12/2023 8:53 AM 05/12/2023 2:29 PM Care Teams Landscape Crew Member Relationship Specialty Start Date End Date Joslyn Espino PA [address] [place] [address] PCP - General Family Medicine 04/26/23
--- OUTSIDE RECORDS SUMMARY | 2024-06-02 10:35 | XMS_ITS | Referral Summary ---
Author Organization [facility] Address [address] [place] [address] Care Team Providers Care Sorting And Folding Supervisor Name Role Phone Joslyn Espino Primary Care Provider [phone] Allergies Active Allergy Reactions Criticality Noted Date [...] on file Legal Sex Female 1:40 PM DISPATCH SPECIALIST Gender Identity Not on file Sexual Orientation Not on file Last Filed Vital Signs Vital Sign Reading Time Taken Comments Blood Pressure 105/59 05/12/2023 9:55 AM DISPATCH SPECIALIST Pulse 78 05/12/2023 10:05 AM DISPATCH SPECIALIST Temperature 36 C (96.8 F) 05/12/2023 10:05 AM DISPATCH SPECIALIST Respiratory Rate 22 05/12/2023 10:05 AM DISPATCH SPECIALIST Oxygen Saturation 95% 05/12/2023 10:05 AM DISPATCH SPECIALIST Inhaled Oxygen Concentration - - Weight 94.8 kg (209 lb) 05/12/2023 6:32 AM DISPATCH SPECIALIST Height 165.1 cm (5' 5 ) 05/12/2023 6:32 AM DISPATCH SPECIALIST Body Mass Index 34.78 05/12/2023 6:32 AM DISPATCH SPECIALIST Plan of Treatment Not on file Medical Devices Implanted Type Area Typewriter Operator Automatic Device Identifier Shelf Expiration Date Model / Serial / Lot Clip Clip Left: Breast Insurance Advance Directives For more information, please contact: [phone] * Full Code (Latest Code Status on File) Date Activated Date Inactivated Comments 05/12/2023 8:53 AM 05/12/2023 2:29 PM Care Teams Sorting And Folding Supervisor Relationship Specialty Start Date End Date Joslyn Espino PA [address] [place] [address] PCP - General Family Medicine 04/26/23
== END 2024-06-02 09:51 | disposition home or self-care (01) ==
PROVIDERS: PCP Family Medicine
DX: M19.041 Primary osteoarthritis, right hand (principal); M19.042 Primary osteoarthritis, left hand
CPT/HCPCS: 73130

== ENCOUNTER 2024-06-15 11:50 | Outpatient (CLI) | payer OTHER, SELFPAY ==
--- NOTE | ~2024-06-15 | XR_ITS ---
XR abdomen/kub 1V Ordering provider: Samir Murry MD History: . BI kidney stones . Comparison: May 22, 2022 FINDINGS: BOWEL: Nonobstructive bowel gas pattern. ORGANOMEGALY: None. SIGNIFICANT PATHOLOGIC CALCIFICATIONS: Stone is seen in the left renal area. OTHER: No free air is seen under the diaphragm. IUD is seen in the uterus. IMPRESSION: NO ACUTE ABDOMINAL FINDINGS. Stone in the left kidney. Reviewed, dictated and finalized at location A.
--- OUTSIDE RECORDS SUMMARY | 2024-06-15 13:02 | XMS_ITS | Clinical Summary ---
Author Organization [facility] Address [address] [place] [address] Care Team Providers Care Blocking Machine Operator Second Name Role Phone Joslyn Espino Primary Care Provider [phone] Allergies Active Allergy Reactions Criticality Noted Date [...] on file Legal Sex Female 1:40 PM BIN OPERATOR Gender Identity Not on file Sexual Orientation Not on file Obstetrics History Last Filed Vital Signs Vital Sign Reading Time Taken Comments Blood Pressure 105/59 05/12/2023 9:55 AM BIN OPERATOR Pulse 78 05/12/2023 10:05 AM BIN OPERATOR Temperature 36 C (96.8 F) 05/12/2023 10:05 AM BIN OPERATOR Respiratory Rate 22 05/12/2023 10:05 AM BIN OPERATOR Oxygen Saturation 95% 05/12/2023 10:05 AM BIN OPERATOR Inhaled Oxygen Concentration - - Weight 94.8 kg (209 lb) 05/12/2023 6:32 AM BIN OPERATOR Height 165.1 cm (5' 5 ) 05/12/2023 6:32 AM BIN OPERATOR Body Mass Index 34.78 05/12/2023 6:32 AM BIN OPERATOR Plan of Treatment Health Maintenance Due Date [...] this topic Medical Devices Implanted Type Area Sales Account Associate Device Identifier Shelf Expiration Date Model / Serial / Lot Clip Clip Left: Breast Insurance [place] [id number] Advance Directives For more information, please contact: [phone] * Full Code (Latest Code Status on File) Date Activated Date Inactivated Comments 05/12/2023 8:53 AM 05/12/2023 2:29 PM Care Teams Blocking Machine Operator Second Relationship Specialty Start Date End Date Joslyn Espino PA [address] [place] [address] PCP - General Family Medicine 04/26/23
--- OUTSIDE RECORDS SUMMARY | 2024-06-15 13:02 | XMS_ITS | Referral Summary ---
Author Organization [facility] Address [address] [place] [address] Care Team Providers Care Communications Strategist Name Role Phone Joslyn Espino Primary Care Provider [phone] Allergies Active Allergy Reactions Criticality Noted Date [...] on file Legal Sex Female 1:40 PM PIPE FITTER MARINE Gender Identity Not on file Sexual Orientation Not on file Last Filed Vital Signs Vital Sign Reading Time Taken Comments Blood Pressure 105/59 05/12/2023 9:55 AM PIPE FITTER MARINE Pulse 78 05/12/2023 10:05 AM PIPE FITTER MARINE Temperature 36 C (96.8 F) 05/12/2023 10:05 AM PIPE FITTER MARINE Respiratory Rate 22 05/12/2023 10:05 AM PIPE FITTER MARINE Oxygen Saturation 95% 05/12/2023 10:05 AM PIPE FITTER MARINE Inhaled Oxygen Concentration - - Weight 94.8 kg (209 lb) 05/12/2023 6:32 AM PIPE FITTER MARINE Height 165.1 cm (5' 5 ) 05/12/2023 6:32 AM PIPE FITTER MARINE Body Mass Index 34.78 05/12/2023 6:32 AM PIPE FITTER MARINE Plan of Treatment Not on file Medical Devices Implanted Type Area Hand Glove Cleaner Device Identifier Shelf Expiration Date Model / Serial / Lot Clip Clip Left: Breast Insurance Advance Directives For more information, please contact: [phone] * Full Code (Latest Code Status on File) Date Activated Date Inactivated Comments 05/12/2023 8:53 AM 05/12/2023 2:29 PM Care Teams Communications Strategist Relationship Specialty Start Date End Date Joslyn Espino PA [address] [place] [address] PCP - General Family Medicine 04/26/23
--- OUTSIDE RECORDS SUMMARY | 2024-06-15 13:02 | XMS_ITS | Data Portability ---
Author Organization [place] - [facility], Main Office Address [address] [place] [address] Care Team Providers Care State Federal Relations Deputy Director Name Role Phone NADER LING Primary Care Provider NADER LING Referring Provider [phone] Assessment Encounter Date Assessment Date Assessment LastModified [...] procedure, administere d by provider 2022 023 In-Office Order, Internal Use Only DO Not Attach Compendium DO Not Attach Compendium, Do Not Delete/merge, [id number] 10:27:46 Surgeries None recorded. Imaging XR, knee 2022 023 [email or web address] [facility], [address], [place], [address], 13:06:36 Medication Orders Kenalog 10 mg/mL suspension for injection 2022 023 [email or web address] [address] [facility] #[id number], [address], [place], [id number], 3 13:06:36 ropivacaine (PF) 5 mg/mL (0.5 %) injection solution 2022 023 [id number], [address], [place], [id number], 3 13:06:36 Patient TargetsNo targets recorded. Patient InstructionsNo instructions recorded. Reason for Referral None Reported. Results Created Date Observation Date Name Description Value Unit Range Abnormal Flag Note LastModifiedBy Organization Detail LastModifiedTime 07/02/19 22 XR, hand, 3 or more view No observ ation record ed. [id number] [facility] [place] [address], [place], [address], 05/21/2022 00:36:00 03/01/20 23 02/25/2023 MRI, knee, w/o contr ast No observ ation record ed. [email or web address] Not Available 02/19 16:09:02 03/10/20 XR, knee No observ ation record ed. [email or web address] [facility] [place] [address], [place], [address], 03/10/2023 10:35:33 Result Notes None recorded. 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 Procedures Surgical History Date Name Laterality Status Provider Name and Address Organization Details Recorded Time Kidney Stones completed Not Available [facility] 05/21/2022 00:34:18 Imaging Results Imaging Date Name Status LastModified by Organiz ation Details LastModified Time 07/01/2021 XR, hand, 3 or more view completed [id number] [facility] [place] [address], [place], [address], 05/21/2022 00:36:00 02/25/2023 MRI, knee, w/o contrast completed [email or web address] Information not available 03/01/2023 16:09:02 03/10/2023 XR, knee completed [email or web address] [facility] [place] [address], [place], [address], 03/10/2023 10:35:33 Procedure Notes None recorded. Medical Equipment None Reported. Allergies Allergen ID Allergen Name Allergen Category Reaction Reaction Severity Criticality Documentation Date Start Date Code Code System Note Provider Name and Address Organization Details Recorded Time 24487 prednison e medicatio n Not available Not available Not available 03/10/2023 8640 RxNorm ANIYAH [place] [facility] 09:04:56 Medications Name Sig Start Date Stop [...] suspension for injection in office 2022 active [facility]: 0003- 0494- 20 Not Available Not Available [...] DateTime 07/01/2021 33.3 kg/m2 165.1 cm 6 10971.47 g Not Available [facility] 05/21/2022 00:35:00 Date Recorded Body mass index (BMI) Body height Pain severity - 0-10 verbal numeric rating [Score] - Reported Body weight Provider Name and Address Organization Details Last Updated DateTime 08/05/2021 33.3 kg/m2 165.1 cm 1 25475.47 g Not Available [facility] 05/21/2022 00:35:00 Date Recorded Body mass index (BMI) Body height Body weight Provider Name and Address Organization Details Last Updated DateTime 08/12/2021 33.3 kg/m2 165.1 cm 30768.47 g Not Available [facility] 05/21/2022 00:35:00 Date Recorded Body mass index (BMI) Body height Pain severity - 0-10 verbal numeric rating [Score] - Reported Body weight Provider Name and Address Organization Details Last Updated DateTime 10/22/2021 33.3 kg/m2 165.1 cm 0 68435.47 g Not Available [facility] 05/21/2022 00:35:00 Date Recorded Body height Body mass index (BMI) Body weight Provider Name and Address Organization Details Last Updated DateTime 03/10/2023 166.37 cm 34.6 kg/m2 06576.99 g ANIYAH [place]illeda [place] - [facility] [place] [facility] 03/10/2023 09:19:31 Social History Question Answer Notes LastModified by Organizat ion Details LastModified Time Tobacco Smoking Status Former Smoker Not Available [facility] 05/21/2022 00:34:13 What Is Your Level Of Alcohol Consumption? Occasional [id number] Information not available 05/21/2022 [facility] [id number] Information not available 05/21/2022 What Was The Date Of Your Most Recent Tobacco Screening? 07/01/2021 [id number] Information not available 05/21/2022 Sex: Unknown Functional Status None recorded. Mental Status None recorded. Family History Relationship Description Onset Age of this Age Resolved Age Notes LastModified by Organization Details LastModified Time Father Family history of stroke [id number] Not available 05/21/2022 00:34:19 Father Hypertensive disorder [id number] Not available 05/21/2022 00:34:19 Father Diabetes mellitus [id number] Not available 05/21/2022 00:34:19 Maternal Grandmother Family history of malignant neoplasm Not available 2022 09:06:47 Medical History Condition Response ULCERS Y URINARY/BLADDER/KIDNEY PROBLEMS Y HYPERTENSION Y Gynecological HistoryNo gynecological history recorded. Obstetrics History GPAL:G 0 P 0 0 0 0 Past Encounters Encounter ID Performer Location Encounter Start Date Encounter Closed Date Diagnosis/Indication Diagnosis SNOMED-CT Code Diagnosis ICD10 Code Diagnosis Note [id number] [facility] [place] [address] [place] [address] 07/01/2021 00:00:00 07/01/2021 12:27:30 [id number] [facility] [place] [address] [place] [address] 08/05/2021 00:00:00 08/05/2021 11:06:39 [id number] [facility] [place] [address] [place] [address] 08/12/2021 00:00:00 08/12/2021 17:57:14 [id number] [facility] [place] [address] [place] [address] 10/22/2021 00:00:00 10/22/2021 14:36:34 [id number] RIMMA Garza [facility] [place] [address] [place] [address] 03/10/2023 08:37:45 03/10/2023 11:15:58 Pain of left knee joint 8697965101 60104 M25.562 Health Concerns Section Related Observation LastModified by Organization Detai ls LastModified Time None Recorded Concern Status LastModified by Organization Details LastModified Time None Recorded Advance Directives Directive None Recorded Payers Encounter Date Sequence Insurance Name Policy Number Policy Chiang Covered Member ID Chiang Member ID Guarantor Name 03/10/2023 1 [facility] [employer] [id number] Sherrell Take [id number] Sherrell Take OBGyn Episode No OBEpisode recorded.
== END 2024-06-15 11:51 | disposition home or self-care (01) ==
PROVIDERS: PCP Family Medicine; Visit Provider Urology
DX: N20.0 Calculus of kidney (principal)
CPT/HCPCS: 74018

== ENCOUNTER 2024-06-26 08:47 | Outpatient (CLI) | payer OTHER, SELFPAY ==
--- NOTE | ~2024-06-26 | XR_ITS ---
Supine and upright views of the abdomen Clinical history: Kidney stones COMPARISON: 06/15/2024 Findings: Bowel gas pattern is nonspecific. No evidence for obstruction or free air. Stable small loni ateral renal stones. Osseous structures are intact. IUD present. Impression: Stable small bilateral renal stones. Reviewed, dictated and finalized at [facility]. Impression: Stable small bilateral renal stones.
--- OUTSIDE RECORDS SUMMARY | 2024-06-26 09:17 | XMS_ITS | Referral Summary ---
Author Organization [facility] Address [address] [place] [address] Care Team Providers Care Railway Switchman Name Role Phone Joslyn Espino Primary Care Provider [phone] Allergies Active Allergy Reactions Criticality Noted Date [...] on file Legal Sex Female 1:40 PM ORDER SCHEDULE CLERK Gender Identity Not on file Sexual Orientation Not on file Last Filed Vital Signs Vital Sign Reading Time Taken Comments Blood Pressure 105/59 05/12/2023 9:55 AM ORDER SCHEDULE CLERK Pulse 78 05/12/2023 10:05 AM ORDER SCHEDULE CLERK Temperature 36 C (96.8 F) 05/12/2023 10:05 AM ORDER SCHEDULE CLERK Respiratory Rate 22 05/12/2023 10:05 AM ORDER SCHEDULE CLERK Oxygen Saturation 95% 05/12/2023 10:05 AM ORDER SCHEDULE CLERK Inhaled Oxygen Concentration - - Weight 94.8 kg (209 lb) 05/12/2023 6:32 AM ORDER SCHEDULE CLERK Height 165.1 cm (5' 5 ) 05/12/2023 6:32 AM ORDER SCHEDULE CLERK Body Mass Index 34.78 05/12/2023 6:32 AM ORDER SCHEDULE CLERK Plan of Treatment Not on file Medical Devices Implanted Type Area Director Of Strategic Sales Device Identifier Shelf Expiration Date Model / Serial / Lot Clip Clip Left: Breast Insurance Advance Directives For more information, please contact: [phone] * Full Code (Latest Code Status on File) Date Activated Date Inactivated Comments 05/12/2023 8:53 AM 05/12/2023 2:29 PM Care Teams Railway Switchman Relationship Specialty Start Date End Date Joslyn Espino PA [address] [place] [address] PCP - General Family Medicine 04/26/23
--- OUTSIDE RECORDS SUMMARY | 2024-06-26 09:17 | XMS_ITS | Data Portability ---
Author Organization [place] - [facility], Main Office Address [address] [place] [address] Care Team Providers Care Dj Instructor Name Role Phone NADER LING Primary Care [...] procedure, administere d by provider 2022 023 [email or web address] In-Office Order, Internal Use Only DO Not Attach Compendium DO Not Attach Compendium, Do Not Delete/merge, [id number] 10:27:46 Surgeries None recorded. Imaging XR, knee 2022 023 [email or web address] [facility], [address], [place], [address], 13:06:36 Medication Orders Kenalog 10 mg/mL suspension for injection 2022 023 [place] [address] [facility] #12347, [address], [place], [phone], 3 13:06:36 ropivacaine (PF) 5 mg/mL (0.5 %) injection solution 2022 023 [facility] #15265, [address], [place], [phone], 3 13:06:36 Patient TargetsNo targets recorded. Patient InstructionsNo instructions recorded. Reason for Referral None Reported. Results Created Date Observation Date Name Description Value Unit Range Abnormal Flag Note LastModifiedBy Organization Detail LastModifiedTime 07/02/19 22 XR, hand, 3 or more view No observ ation record ed. [id number] [facility] [place] [address], [place], [address], 05/21/2022 00:36:00 03/01/20 23 02/25/2023 MRI, knee, w/o contr ast No observ ation record ed. [email or web address] Not Available 02/19 16:09:02 03/10/20 XR, knee No observ ation record ed. [email or web address] [facility] [place] [address], [place], [address], 03/10/2023 10:35:33 Result Notes None recorded. 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 Procedures Surgical History Date Name Laterality Status Provider Name and Address Organization Details Recorded Time Kidney Stones completed Not Available [facility] 05/21/2022 00:34:18 Imaging Results Imaging Date Name Status LastModified by Organiz ation Details LastModified Time 07/01/2021 XR, hand, 3 or more view completed [id number] [facility] [place] [address], [place], [address], 05/21/2022 00:36:00 02/25/2023 MRI, knee, w/o contrast completed [email or web address] Information not available 03/01/2023 16:09:02 03/10/2023 XR, knee completed [email or web address] [facility] [place] [address], [place], [address], 03/10/2023 10:35:33 Procedure Notes None recorded. Medical Equipment None Reported. Allergies Allergen ID Allergen Name Allergen Category Reaction Reaction Severity Criticality Documentation Date Start Date Code Code System Note Provider Name and Address Organization Details Recorded Time 73553 prednison e medicatio n Not available Not available Not available 03/10/2023 8640 RxNorm ANIYAH [place] [facility] 09:04:56 Medications Name Sig Start Date Stop [...] suspension for injection in office 2022 active [facility]: 0003- 0494- 20 Not Available Not [...] DateTime 07/01/2021 33.3 kg/m2 165.1 cm 6 50277.47 g Not Available [facility] 05/21/2022 00:35:00 Date Recorded Body mass index (BMI) Body height Pain severity - 0-10 verbal numeric rating [Score] - Reported Body weight Provider Name and Address Organization Details Last Updated DateTime 08/05/2021 33.3 kg/m2 165.1 cm 1 15083.47 g Not Available [facility] 05/21/2022 00:35:00 Date Recorded Body mass index (BMI) Body height Body weight Provider Name and Address Organization Details Last Updated DateTime 08/12/2021 33.3 kg/m2 165.1 cm 15289.47 g Not Available [facility] 05/21/2022 00:35:00 Date Recorded Body mass index (BMI) Body height Pain severity - 0-10 verbal numeric rating [Score] - Reported Body weight Provider Name and Address Organization Details Last Updated DateTime 10/22/2021 33.3 kg/m2 165.1 cm 0 55917.47 g Not Available [facility] 05/21/2022 00:35:00 Date Recorded Body height Body mass index (BMI) Body weight Provider Name and Address Organization Details Last Updated DateTime 03/10/2023 166.37 cm 34.6 kg/m2 60777.99 g ANIYAH Villeda [place] [facility] [place] [facility] 03/10/2023 09:19:31 Social History Question Answer Notes LastModified by Organizat ion Details LastModified Time Tobacco Smoking Status Former Smoker Not Available [facility] 05/21/2022 00:34:13 What Is Your Level Of Alcohol Consumption? Occasional [id number] Information not available 05/21/2022 When [facility] You [facility] [id number].[id number] 026 Information not available 05/21/2022 What Was The Date Of Your Most Recent Tobacco Screening? 07/01/2021 [id number] Information not available 05/21/2022 Sex: Unknown Functional Status None recorded. Mental Status None recorded. Family History Relationship Description Onset Age of this Age Resolved Age Notes LastModified by Organization Details LastModified Time Father Family history of stroke MIGRATION.529 [id number] Not available 05/21/2022 00:34:19 Father Hypertensive disorder MIGRATION.422 [id number] Not available 05/21/2022 00:34:19 Father Diabetes mellitus [id number].707 [id number] Not available 05/21/2022 00:34:19 Maternal Grandmother Family history of malignant neoplasm [email or web address] Not available 2022 09:06:47 Medical History Condition Response ULCERS Y HYPERTENSION Y URINARY/BLADDER/KIDNEY PROBLEMS Y Gynecological HistoryNo gynecological history recorded. Obstetrics History GPAL:G 0 P 0 0 0 0 Past Encounters Encounter ID Performer Location Encounter Start Date Encounter Closed Date Diagnosis/Indication Diagnosis SNOMED-CT Code Diagnosis ICD10 Code Diagnosis Note [id number] [facility] [place] [address] [place] [address] 07/01/2021 00:00:00 07/01/2021 12:27:30 [id number] [facility] [place] [address] [place] [address] 08/05/2021 00:00:00 08/05/2021 11:06:39 [id number] [facility] [place] [address] [place] [address] 08/12/2021 00:00:00 08/12/2021 17:57:14 [id number] [facility] [place] [address] [place] [address] 10/22/2021 00:00:00 10/22/2021 14:36:34 [id number] RIMMA Garza [facility] [place] [address] [place] [address] 03/10/2023 08:37:45 03/10/2023 11:15:58 Pain of left knee joint 3135856187 87104 M25.562 Health Concerns Section Related Observation LastModified by Organization Detai ls LastModified Time None Recorded Concern Status LastModified by Organization Details LastModified Time None Recorded Advance Directives Directive None Recorded Payers Encounter Date Sequence Insurance Name Policy Number Policy Chiang Covered Member ID Chiang Member ID Guarantor Name 03/10/2023 1 [facility] [employer]NAGEMENT [id number] Sherrell Take [id number] Sherrell Take OBGyn Episode No OBEpisode recorded.
--- OUTSIDE RECORDS SUMMARY | 2024-06-26 09:17 | XMS_ITS | Clinical Summary ---
Author Organization [facility] Address [address] [place] [address] Care Team Providers Care Union Representative Name Role Phone Joslyn Espino Primary Care Provider [phone] Allergies Active Allergy Reactions Criticality Noted Date [...] on file Legal Sex Female 1:40 PM GOVERNMENT RELATIONS ANALYST Gender Identity Not on file Sexual Orientation Not on file Obstetrics History Last Filed Vital Signs Vital Sign Reading Time Taken Comments Blood Pressure 105/59 05/12/2023 9:55 AM GOVERNMENT RELATIONS ANALYST Pulse 78 05/12/2023 10:05 AM GOVERNMENT RELATIONS ANALYST Temperature 36 C (96.8 F) 05/12/2023 10:05 AM GOVERNMENT RELATIONS ANALYST Respiratory Rate 22 05/12/2023 10:05 AM GOVERNMENT RELATIONS ANALYST Oxygen Saturation 95% 05/12/2023 10:05 AM GOVERNMENT RELATIONS ANALYST Inhaled Oxygen Concentration - - Weight 94.8 kg (209 lb) 05/12/2023 6:32 AM GOVERNMENT RELATIONS ANALYST Height 165.1 cm (5' 5 ) 05/12/2023 6:32 AM GOVERNMENT RELATIONS ANALYST Body Mass Index 34.78 05/12/2023 6:32 AM GOVERNMENT RELATIONS ANALYST Plan of Treatment Health Maintenance Due Date Last Done Comments Breast Cancer Screening-Mammogram 1965 Cervical Cancer Screening 1965 Colon Cancer Screening-Colonoscopy 1965 Depression Screening 1965 Hepatitis C Screening 1965 Hepatitis B Screening 12/23/1983 Regular Well Visit/Exam 18-64 12/23/1983 Zoster Vaccine (1 of 2) 12/23/2015 Covid-19 Vaccine (2 - 2023-2 5 season) 2023 08/26/2020 Influenza Vaccine (Season Ended) 2024 04/12/2019, 12/31/2014 DTaP/Tdap/Td Vaccine (2 - Td or Tdap) 04/12/2026 04/12/2016 Pneumococcal vaccine <65 Aged Out No longer eligible based on patient's age to complete this topic Medical Devices Implanted Type Area Top Lift Cutter Device Identifier Shelf Expiration Date Model / Serial / Lot Clip Clip Left: Breast Insurance [place] [id number] Advance Directives For more information, please contact: [phone] * Full Code (Latest Code Status on File) Date Activated Date Inactivated Comments 05/12/2023 8:53 AM 05/12/2023 2:29 PM Care Teams Union Representative Relationship Specialty Start Date End Date Joslyn Espino PA [address] [place] [address] PCP - General Family Medicine 04/26/23
== END 2024-06-26 08:48 | disposition home or self-care (01) ==
PROVIDERS: PCP Family Medicine; Visit Provider Urology
DX: N20.0 Calculus of kidney (principal)
CPT/HCPCS: 74018

== ENCOUNTER 2024-07-13 12:37 | Outpatient (CLI) | payer OTHER, SELFPAY ==
--- OUTSIDE RECORDS SUMMARY | 2024-07-13 13:40 | XMS_ITS | Data Portability ---
Author Organization [place] - [facility], Main Office Address [address] [place] [address] Care Team Providers Care Overhauler Name Role Phone NADER LING Primary Care Provider [phone] NADER LING Referring Provider Assessment Encounter Date [...] DO Not Attach Compendium, Do Not Delete/merge, [id number] 10:27:46 Surgeries None recorded. Imaging XR, knee 2022 023 [email or web address] [facility], [address], [place], [address], 13:06:36 Medication Orders Kenalog 10 mg/mL suspension for injection 2022 023 [place] [address] [id number], [address], [place], [id number], 3 13:06:36 ropivacaine (PF) 5 mg/mL (0.5 %) [id number], [address], [place], [id number], 3 13:06:36 Patient TargetsNo targets recorded. Patient InstructionsNo instructions recorded. Reason for Referral None Reported. Results Created Date Observation Date Name Description Value Unit Range Abnormal Flag Note LastModifiedBy Organization Detail LastModifiedTime 07/02/19 22 XR, hand, 3 or more view No observ ation record ed. [id number] [facility] [place] [address], [place], [address], 05/21/2022 00:36:00 03/01/20 23 02/25/2023 MRI, knee, w/o contr ast No observ ation record ed. [email or web address] Not Available 02/19 16:09:02 03/10/20 XR, knee No observ ation record ed. [email or web address] [facility] [place] [address], [place], [address], 03/10/2023 10:35:33 Result Notes None recorded. 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 Procedures Surgical History Date Name Laterality Status Provider Name and Address Organization Details Recorded Time Kidney Stones completed Not Available formerly [facility] 05/21/2022 00:34:18 Imaging Results Imaging Date Name Status LastModified by Organiz ation Details LastModified Time 07/01/2021 XR, hand, 3 or more view completed [id number] [facility] [place] [address], [place], [address], 05/21/2022 00:36:00 02/25/2023 MRI, knee, w/o contrast completed [email or web address] Information not available 03/01/2023 16:09:02 03/10/2023 XR, knee completed [email or web address] [facility] [place] [address], [place], [address], 03/10/2023 10:35:33 Procedure Notes None recorded. Medical Equipment None Reported. Allergies Allergen ID Allergen Name Allergen Category Reaction Reaction Severity Criticality Documentation Date Start Date Code Code System Note Provider Name and Address Organization Details Recorded Time 16835 prednison e medicatio n Not available Not available Not available 03/10/2023 8640 RxNorm ANIYAH [place] [employer] 09:04:56 Medications Name Sig Start Date Stop [...] suspension for injection in office 2022 active [facility]: 0003- 0494- 20 Not Available Not Available [...] DateTime 07/01/2021 33.3 kg/m2 165.1 cm 6 59542.47 g Not Available [facility] 05/21/2022 00:35:00 Date Recorded Body mass index (BMI) Body height Pain severity - 0-10 verbal numeric rating [Score] - Reported Body weight Provider Name and Address Organization Details Last Updated DateTime 08/05/2021 33.3 kg/m2 165.1 cm 1 28321.47 g Not Available [facility] 05/21/2022 00:35:00 Date Recorded Body mass index (BMI) Body height Body weight Provider Name and Address Organization Details Last Updated DateTime 08/12/2021 33.3 kg/m2 165.1 cm 90618.47 g Not Available [facility] 05/21/2022 00:35:00 Date Recorded Body mass index (BMI) Body height Pain severity - 0-10 verbal numeric rating [Score] - Reported Body weight Provider Name and Address Organization Details Last Updated DateTime 10/22/2021 33.3 kg/m2 165.1 cm 0 87109.47 g Not Available [facility] 05/21/2022 00:35:00 Date Recorded Body height Body mass index (BMI) Body weight Provider Name and Address Organization Details Last Updated DateTime 03/10/2023 166.37 cm 34.6 kg/m2 99443.99 g ANIYAH [place] [facility] 03/10/2023 09:19:31 Social History Question Answer Notes LastModified by Organizat ion Details LastModified Time Tobacco Smoking Status Former Smoker Not Available formerly [facility] 05/21/2022 00:34:13 What Is Your Level Of Alcohol Consumption? Occasional [id number] Information not available 05/21/2022 [facility] [id number] Information not available 05/21/2022 What Was The Date Of Your Most Recent Tobacco Screening? 07/01/2021 [id number] Information not available 05/21/2022 Sex: Unknown Functional Status None recorded. Mental Status None recorded. Family History Relationship Description Onset Age of this Age Resolved Age Notes LastModified by Organization Details LastModified Time Father Family history of stroke [id number] Not available 05/21/2022 00:34:19 Father Hypertensive disorder [id number] Not available 05/21/2022 00:34:19 Father Diabetes mellitus [id number] Not available 05/21/2022 00:34:19 Maternal Grandmother Family history of malignant neoplasm Not available 2022 09:06:47 Medical History Condition Response ULCERS Y URINARY/BLADDER/KIDNEY PROBLEMS Y HYPERTENSION Y Gynecological HistoryNo gynecological history recorded. Obstetrics History GPAL:G 0 P 0 0 0 0 Past Encounters Encounter ID Performer Location Encounter Start Date Encounter Closed Date Diagnosis/Indication Diagnosis SNOMED-CT Code Diagnosis ICD10 Code Diagnosis Note [id number] [facility] [place] [address] [facility] [address] [place] [address] 07/01/2021 00:00:00 07/01/2021 12:27:30 [id number] [facility] [place] [address] [place] [address] 08/05/2021 00:00:00 08/05/2021 11:06:39 [id number] [facility] [place] [address] [place] [address] 08/12/2021 00:00:00 08/12/2021 17:57:14 [id number] [facility] [place] [address] [place] [address] 10/22/2021 00:00:00 10/22/2021 14:36:34 [id number] RIMMA Garza [facility] [place] [address] [place] [address] 03/10/2023 08:37:45 03/10/2023 11:15:58 Pain of left knee joint 5129335914 65532 M25.562 Health Concerns Section Related Observation LastModified by Organization Detai ls LastModified Time None Recorded Concern Status LastModified by Organization Details LastModified Time None Recorded Advance Directives Directive None Recorded Payers Encounter Date Sequence Insurance Name Policy Number Policy Chiang Covered Member ID Chiang Member ID Guarantor Name 03/10/2023 1 [facility] [employer] [id number] Sherrell Take [id number] Sherrell Take OBGyn Episode No OBEpisode recorded.
--- OUTSIDE RECORDS SUMMARY | 2024-07-13 13:40 | XMS_ITS | Referral Summary ---
Author Organization [facility] Address [address] [place] [address] Care Team Providers Care Room Service Waiter Name Role Phone Joslyn Espino Primary Care Provider [phone] Allergies Active Allergy Reactions Criticality Noted Date [...] on file Legal Sex Female 1:40 PM MILL OPERATOR Gender Identity Not on file Sexual Orientation Not on file Last Filed Vital Signs Vital Sign Reading Time Taken Comments Blood Pressure 105/59 05/12/2023 9:55 AM MILL OPERATOR Pulse 78 05/12/2023 10:05 AM MILL OPERATOR Temperature 36 C (96.8 F) 05/12/2023 10:05 AM MILL OPERATOR Respiratory Rate 22 05/12/2023 10:05 AM MILL OPERATOR Oxygen Saturation 95% 05/12/2023 10:05 AM MILL OPERATOR Inhaled Oxygen Concentration - - Weight 94.8 kg (209 lb) 05/12/2023 6:32 AM MILL OPERATOR Height 165.1 cm (5' 5 ) 05/12/2023 6:32 AM MILL OPERATOR Body Mass Index 34.78 05/12/2023 6:32 AM MILL OPERATOR Plan of Treatment Not on file Medical Devices Implanted Type Area User Interface Designer Device Identifier Shelf Expiration Date Model / Serial / Lot Clip Clip Left: Breast Insurance Advance Directives For more information, please contact: [phone] * Full Code (Latest Code Status on File) Date Activated Date Inactivated Comments 05/12/2023 8:53 AM 05/12/2023 2:29 PM Care Teams Room Service Waiter Relationship Specialty Start Date End Date Joslyn Espino PA [address] [place] [address] PCP - General Family Medicine 04/26/23
--- OUTSIDE RECORDS SUMMARY | 2024-07-13 13:40 | XMS_ITS | Clinical Summary ---
Author Organization [facility] Address [address] [place] [address] Care Team Providers Care Salvage Laborer Name Role Phone Joslyn Espino Primary Care Provider [phone] Allergies Active Allergy Reactions Criticality Noted Date [...] on file Legal Sex Female 1:40 PM PEDIATRIC PATHOLOGIST Gender Identity Not on file Sexual Orientation Not on file Obstetrics History Last Filed Vital Signs Vital Sign Reading Time Taken Comments Blood Pressure 105/59 05/12/2023 9:55 AM PEDIATRIC PATHOLOGIST Pulse 78 05/12/2023 10:05 AM PEDIATRIC PATHOLOGIST Temperature 36 C (96.8 F) 05/12/2023 10:05 AM PEDIATRIC PATHOLOGIST Respiratory Rate 22 05/12/2023 10:05 AM PEDIATRIC PATHOLOGIST Oxygen Saturation 95% 05/12/2023 10:05 AM PEDIATRIC PATHOLOGIST Inhaled Oxygen Concentration - - Weight 94.8 kg (209 lb) 05/12/2023 6:32 AM PEDIATRIC PATHOLOGIST Height 165.1 cm (5' 5 ) 05/12/2023 6:32 AM PEDIATRIC PATHOLOGIST Body Mass Index 34.78 05/12/2023 6:32 AM PEDIATRIC PATHOLOGIST Plan of Treatment Health Maintenance Due Date [...] this topic Medical Devices Implanted Type Area Bottoming Room Inspector Device Identifier Shelf Expiration Date Model / Serial / Lot Clip Clip Left: Breast Insurance [place] [id number] Advance Directives For more information, please contact: [phone] * Full Code (Latest Code Status on File) Date Activated Date Inactivated Comments 05/12/2023 8:53 AM 05/12/2023 2:29 PM Care Teams Salvage Laborer Relationship Specialty Start Date End Date Joslyn Espino PA [address] [place] [address] PCP - General Family Medicine 04/26/23
--- NOTE | 2024-07-13 14:28 | ECG_ITS ---
Test Date: 2024-07-13 14:47:53 Measurements Intervals [place] Rate: 78 P: 59 WV: 171 QRS: -15 QRSD: 85 T: 58 QT: 363 QTc: 415 Interpretive Statements SINUS RHYTHM LOW QRS VOLTAGE IN PRECORDIAL LEADS POSSIBLE ANTERIOR MYOCARDIAL INFARCTION BASELINE ARTIFACT- I, III, AVL ABNORMAL ECG No previous ECG available for comparison Electronically Signed On 07-13-2024 15:32:36 CDT by Rambo Stauffer D.O.
[2024-07-13 15:31] LABS: Add Urine Microscopic? YES; Appearance Urine Clear (Clear); Bacteria Urine None Seen /hpf; Bilirubin Urine Negative (Negative); Blood Urine Negative (Negative); Color Urine Yellow (Yellow); Glucose Urine UA Negative (Negative); Ketones Urine Negative (Negative); Leukocyte Esterase Ur Trace LEU/UL (Negative); Nitrate Urine Negative (Negative); Non Pathogenic Casts 0-2; Protein Urine Negative (Negative); Specific Grav Ur 1.017 (1.001-1.035); Squamous Epithelial Cell Urine None Seen /hpf (Few); Urobilinogen Urine 0.2 mg/dL (<2.0); WBC Urine 0-5 /hpf (0-3)
[2024-07-13 15:45] LABS: Prothrombin Time 13.3 Seconds (11.1-14.7)
[2024-07-13 15:46] LABS: Partial Thromboplastin Time 29.6 Seconds (22.3-36.8)
== END 2024-07-13 12:38 | disposition home or self-care (01) ==
PROVIDERS: PCP Family Medicine; Visit Provider Urology
DX: N20.0 Calculus of kidney (principal); I10 Essential (primary) hypertension; Z01.818 Encounter for other preprocedural examination
CPT/HCPCS: 36415; 81001; 85610; 85730; 93005

== ENCOUNTER 2024-07-14 01:35 | Day surgery (SDC) | payer OTHER, SELFPAY ==
--- NOTE | 2024-07-12 14:43 | PC.NURSE ---
Report to the Outpatient Waiting Room, entrance under the green pavilion located off [facility], at time _1000_ on date _07/14/24_. Planned Procedure Time: _1200.? Time changes happen often and if your time is changed the preop area will call you the afternoon before. - You and your visitor will be asked to self-screen and do not enter if you have any COVID symptoms. Please call surgeon if you need to reschedule. - A mask is optional within the hospital at this time. Patients may have clear liquids (water, carbonated beverages, clear teas, apple juice) until 3 hours prior to surgery with a maximum of 20 ounces. - No food from midnight until time of surgery and no smoking, or chewing tobacco (or any form of nicotine). No chewing gum, candy or mints. - Infants may have breast milk until 4 hours before surgery, infant formula 6 hours prior to surgery. - Children will be allowed to drink immediately following surgery.? If applicable, please bring a bottle or sippy cup to assist with drinking. Juice, water, soda, and popsicles are readily available.? For infants on formula, please bring formula the day of surgery.? Pacifiers are allowed. Take only the following medications with a SIP of water on the morning of surgery: __PT STATES SHE HAS NOT STARTED DULOXETINE YET DO NOT STOP ANY OF YOUR OTHER PRESCRIPTION MEDICATIONS PRIOR TO SURGERY EXCEPT THE FOLLOWING Hold all vitamins and supplements for 3 days per anesthesiologist. Medications to discontinue per physician DICLOFINAC Date to take last dose 07/12/24 Please no make-up, nail faroese, hairspray, perfume, deodorant, or body powder the day of surgery.? No jewelry (including any body piercings) or valuables the day of surgery, leave them at home.? Please take a shower or bath the night before, or the morning of, surgery with an antibacterial soap.? Wear comfortable, loose fitting clothing.? Children are encouraged to wear pajamas. - Jewelry must be removed prior to entering the operating room.? Rings and piercings that are not removed may be cut off. - The hospital will not accept responsibility for valuables.? - Please leave all valuables, including medications, at home the day of surgery. If you are going home after surgery, a licensed escort vehicle driver must drive you home.? - NO public transportation without another adult if you receive anesthesia. - We recommend that an adult stay with you for 24 hours following discharge. - We also recommend that you do not drive, make important decision, drink alcoholic beverages, or take any drugs that were not prescribed by your health care provider for at least 24 hours after your discharge time. For Pediatric surgeries, we recommend two adults accompany the child home. Follow any additional instructions given to you from your surgeon. Telephone instructions given to _PATIENT__and asked if any additional questions and then verbalized understanding. Patient advised to call surgeon office or pre surgery nurse liaison [phone] if any additional questions.
[2024-07-14] VITALS (8 sets, daily range): BP systolic 104–127; BP diastolic 59–78; PULSE 64–82; RESP 10–16; TEMP 36.2–36.9; O2SAT 97–100
--- NOTE | ~2024-07-14 | XR_ITS ---
Exam: Abdomen 1V HISTORY: ESWL/RIGHT SIDE COMPARISON: 06/26/2024. TECHNIQUE: Supine images of the abdomen FINDINGS: Bowel gas pattern is nonspecific and non-obstructive. There is no free air or deep sulci. Dense fecal stasis projects over the bilateral kidneys, precluding adequate detailed evaluation. However, when compared with previous examination, 5.7 mm cluster of stones projecting over the upper pole of the right kidney with 3.7 mm possible cluster projecting over the lower pole of the right kid sun (adjacent to the L3 vertebral body). Projecting over the left kidney: 4.5 mm projecting over the upper pole, 2.8 mm projecting over the interpolar region and 3.4 mm the lo wer pole. Lung bases are not included. Intrauterine device in the pelvis. Multiple phleboliths within the pelvis, left greater than right. Bones and remaining soft tissues are unremarkable. IMPRESSION: Nonspecific, nonobstructive bowel gas pattern with dense fecal stasis in the colon. Bilateral renal calculi, as detailed above. Reviewed, dictated and finalized at location A. IMPRESSION: Nonspecific, nonobstructive bowel gas pattern with dense fecal stasis in the co alvin. Bilateral renal calculi, as detailed above.
--- OUTSIDE RECORDS SUMMARY | 2024-07-14 01:56 | XMS_ITS | Clinical Summary ---
Author Organization [facility] Address [address] [place] [address] Care Team Providers Care Industrial Machinery Mechanic Name Role Phone Joslyn Espino Primary Care Provider [phone] Allergies Active Allergy Reactions Criticality Noted Date [...] on file Legal Sex Female 1:40 PM TARIFF INSPECTOR Gender Identity Not on file Sexual Orientation Not on file Obstetrics History Last Filed Vital Signs Vital Sign Reading Time Taken Comments Blood Pressure 105/59 05/12/2023 9:55 AM TARIFF INSPECTOR Pulse 78 05/12/2023 10:05 AM TARIFF INSPECTOR Temperature 36 C (96.8 F) 05/12/2023 10:05 AM TARIFF INSPECTOR Respiratory Rate 22 05/12/2023 10:05 AM TARIFF INSPECTOR Oxygen Saturation 95% 05/12/2023 10:05 AM TARIFF INSPECTOR Inhaled Oxygen Concentration - - Weight 94.8 kg (209 lb) 05/12/2023 6:32 AM TARIFF INSPECTOR Height 165.1 cm (5' 5 ) 05/12/2023 6:32 AM TARIFF INSPECTOR Body Mass Index 34.78 05/12/2023 6:32 AM TARIFF INSPECTOR Plan of Treatment Health Maintenance Due Date [...] this topic Medical Devices Implanted Type Area Supervisor Hot Dip Tinning Device Identifier Shelf Expiration Date Model / Serial / Lot Clip Clip Left: Breast Insurance [place] [id number] Advance Directives For more information, please contact: [phone] * Full Code (Latest Code Status on File) Date Activated Date Inactivated Comments 05/12/2023 8:53 AM 05/12/2023 2:29 PM Care Teams Industrial Machinery Mechanic Relationship Specialty Start Date End Date Joslyn Espino PA [address] [place] [address] PCP - General Family Medicine 04/26/23
--- OUTSIDE RECORDS SUMMARY | 2024-07-14 01:56 | XMS_ITS | Referral Summary ---
Author Organization [facility] Address [address] [place] [address] Care Team Providers Care Glass Forming Engineer Name Role Phone Joslyn Espino Primary Care Provider [phone] Allergies Active Allergy Reactions Criticality Noted Date [...] on file Legal Sex Female 1:40 PM INFORMATION SECURITY OFFICER Gender Identity Not on file Sexual Orientation Not on file Last Filed Vital Signs Vital Sign Reading Time Taken Comments Blood Pressure 105/59 05/12/2023 9:55 AM INFORMATION SECURITY OFFICER Pulse 78 05/12/2023 10:05 AM INFORMATION SECURITY OFFICER Temperature 36 C (96.8 F) 05/12/2023 10:05 AM INFORMATION SECURITY OFFICER Respiratory Rate 22 05/12/2023 10:05 AM INFORMATION SECURITY OFFICER Oxygen Saturation 95% 05/12/2023 10:05 AM INFORMATION SECURITY OFFICER Inhaled Oxygen Concentration - - Weight 94.8 kg (209 lb) 05/12/2023 6:32 AM INFORMATION SECURITY OFFICER Height 165.1 cm (5' 5 ) 05/12/2023 6:32 AM INFORMATION SECURITY OFFICER Body Mass Index 34.78 05/12/2023 6:32 AM INFORMATION SECURITY OFFICER Plan of Treatment Not on file Medical Devices Implanted Type Area Electronic Security Technician Device Identifier Shelf Expiration Date Model / Serial / Lot Clip Clip Left: Breast Insurance Advance Directives For more information, please contact: [phone] * Full Code (Latest Code Status on File) Date Activated Date Inactivated Comments 05/12/2023 8:53 AM 05/12/2023 2:29 PM Care Teams Glass Forming Engineer Relationship Specialty Start Date End Date Joslyn Espino PA [address] [place] [address] PCP - General Family Medicine 04/26/23
--- NOTE | 2024-07-14 10:50 | WPDHPUPDATE1 ---
History and Physical Update Update Date/Time: 07/14/24 10:50 History and Physical has been reviewed, including an updated exam of the patient. There are NO changes in the patient's condition. Risks, benefits, and alternatives have been discussed and questions answered. Patient agrees to proceed with procedure.
--- NOTE | 2024-07-14 11:25 | P.PNAN_ITS ---
Anes - Initial Pre Proc Eval Procedure: Operation Date: 07/14/24 12:00 Proposed Procedures p Right Extracorporeal Shock Wave Lithotripsy - Samir Murry MD Date/Time: 07/14/24 11:25 Surgeon: Samir Murry MD Pre Op Diagnosis: right renal stones Patient Data Age: 58 Gender: F Height: Weight: Allergies Allergy/AdvReac Type Severity Reaction Status Date / Time prednisone AdvReac Intermediate Sweating Verified 07/14/24 11:25 Home Medications ?Medication ?Instructions ?Recorded ?Confirmed ?Type levonorgestrel (Mirena) See Rx Instructions .Route .COMPLEX 07/17/21 07/12/24 History fluticasone propionate 50 1 spray intranasal BID PRN nasal 02/19/23 07/12/24 Rx mcg/actuation nasal congestion #16 grams spray,suspension (Flonase Allergy Relief) diclofenac sodium 75 mg 75 mg PO BID PRN pain #90 tabs 06/01/24 07/12/24 Rx tablet,delayed release duloxetine 30 mg capsule,delayed 30 mg PO DAILY #7 caps 06/01/24 07/12/24 Rx release duloxetine 60 mg capsule,delayed 60 mg PO DAILY #60 caps 06/01/24 07/12/24 Rx release tamsulosin 0.4 mg capsule (Flomax) 0.4 mg PO DAILY 06/01/24 07/12/24 History irbesartan 150 1 tablet PO DAILY 07/12/24 07/12/24 History mg-hydrochlorothiazide 12.5 mg tablet Patient hx anesthesia problems: none Family hx anesthesia problems: none Results Review: All pre-operative results and documents have been reviewed as part of the pre- operative evaluation. [facility] Past Medical History Medical History Obstructive sleep apnea Osteoarthritis of right foot Primary osteoarthritis of left foot Osteoarthritis, multiple sites MINH (generalized anxiety disorder) Essential hypertension COPD (chronic obstructive pulmonary disease) Insomnia Chronic headaches Surgical History Surgical History History of uterine suspension procedure 05/2018 History of urethral stent placement 02/11/2015 removal 03/27/2015 History of laparoscopic cholecystectomy 05/2011 History of lithotripsy 06/2003, 07/2012, 03/08/2015 History of laparoscopy ovarian cyst 2002 Family History Family History Other Diabetes mellitus Family history of arthritis Family history of gout Family history of kidney disease Hypertension Social History Social History Smoking packs per day: 1.5 Smoking cigarettes per day: 30.0 Years smoked: 10 Smoking pack-years: 15.00 Smoking status: Former smoker Tobacco type: cigarettes Smoking end date: 09/20/95 Additional smoking assessment comments: STOPPED 1994 Alcohol intake: current Alcohol use details: 2 PER YEAR Substance use: never Substance use type: marijuana Other substance usage details: IN HIGH SCHOOL Lack of Transportation: No Lack of Food: Never True Current Housing: I Have Housing Concerned About Future Housing: No Difficulty Paying Gas/Electric Bills: No Difficulty Paying for Meds: No Currently Unemployed: No Education: Trade/Vocational Certificate Difficulty w/ Childcare or Family Care: No Living arrangements: with family Additional living arrangements comments: BOYFRIEND AND DAUGHTER Occupation/Education: occupation Gender identity (if verbalized by the patient): Female Sexual Orientation (if Verbalized by the Patient): Straight or Heterosexual Spiritual care concerns: No Anes - Eval Final PreProcedure Day of Procedure 07/14/24 11:25 Patient weight: obese Heart: regular rate and rhythm Lungs: clear to auscultation Airway: Mallampati scale class II Neurological: alert and oriented Last oral intake: >/= 8 hours ASA classification: III Emergent: no Anesthetic plan: proceed Anesthesia type and monitoring: general LMA and standard monitoring Results Review: All pre-operative results and documents have been reviewed as part of the pre- operative evaluation. Informed Consent: The patient's anesthetic plan and its attendant risks and benefits were discussed with the patient/family/POA. Questions were solicited and answers provided to the satisfaction of the patient/family/POA.
[2024-07-14] MEDS: LACTATED RINGERS 1,000 ML 30 ML IV CONT (11:26)
[2024-07-14] MEDS: SCOPOLAMINE 1 MG PATCH 1 PATCH TRANSDERM (11:27)
[2024-07-14] MEDS: ceFAZolin 2 GM/D5W 50 ML 2 GM/50 ML BAG IVPB (12:06)
--- NOTE | 2024-07-14 12:38 | W.PM.PROC2 ---
Procedure Note - Detailed Date of Procedure 07/14/24 Pre-op Diagnosis right renal stones Post-op Diagnosis Same Procedure Performed Lithotripsy right renal calculus Surgeon Samir Murry MD Anesthesia General Description of Procedure Patient was taken the operative suite correctly identified. Once anesthesia was obtained the stone was localized in both planes. It was the upper pole stone. Two thousand five hundred shocks were given stone. Patient tolerated procedure well without complications and was taken recovery stable condition. He will follow-up in 7-10 days with KUB. This completes dictation. Please send a copy of op note to my office Estimated Blood Loss 0 Drains No Packing No Pathology None sent Complications No immediate complications Condition Stable Disposition PACU
[2024-07-14] MEDS: fentaNYL CITRATE INJ (*CRX) 100 MCG/2 ML VIAL 25 MCG IV PUSH ×4 (13:36→13:45)
[2024-07-14] MEDS: oxyCODONE HCL (*CRX) 5 MG TAB IR PO (14:03)
== END 2024-07-14 14:44 | disposition home or self-care (01) ==
PROVIDERS: PCP Family Medicine; Visit Provider Urology
PROC: (CPT 50590; principal; 2024-07-14 12:00)
DX: N20.0 Calculus of kidney (principal); I10 Essential (primary) hypertension
CPT/HCPCS: 50590; 74018; A9270; J0690; J2250; J2405; J2704; J3010; J7120

== ENCOUNTER 2024-07-24 08:32 | Outpatient (CLI) | payer OTHER, SELFPAY ==
--- NOTE | ~2024-07-24 | XR_ITS ---
XR abdomen/kub 1V Ordering provider: Samir Murry MD History: . Bilateral Kidney stones . Comparison: None. FINDINGS: BOWEL: Nonobstructive bowel gas pattern. ORGANOMEGALY: None. SIGNIFICANT PATHOLOGIC CALCIFICATIONS: Multiple stones seen in the left kidney. Right kidney is overl apped by fecal material. OTHER: No free air is seen under the diaphragm. IUD is noted. Pubic symphysitis. Degenerative spine. IMPRESSION: NO ACUTE ABDOMINAL FINDINGS. Left kidney stones. Noncontrast CT is better for evaluation. Reviewed, dictated and finalized at location A.
--- OUTSIDE RECORDS SUMMARY | 2024-07-24 08:58 | XMS_ITS | Data Portability ---
Author Organization [place] - [facility] [employer], Main Office Address [address] [place] [address] Care Team Providers Care Glass Blowing Instructor Name Role Phone NADER LING Primary [...] procedure, administere d by provider 2022 023 [email or web address] In-Office Order, Internal Use Only DO Not Attach Compendium DO Not Attach Compendium, Do Not Delete/merge, [id number] 10:27:46 Surgeries None recorded. Imaging XR, knee 2022 023 [email or web address] [facility], [address], [place], [address], 13:06:36 Medication Orders Kenalog 10 mg/mL suspension for injection 2022 023 [email or web address] [id number], [address], [place], [id number], 3 13:06:36 ropivacaine (PF) 5 mg/mL (0.5 %) injection [facility] 2022 [id number], [address], [place], [id number], 3 13:06:36 Patient TargetsNo targets recorded. Patient InstructionsNo instructions recorded. Reason for Referral None Reported. Results Created Date Observation Date Name Description Value Unit Range Abnormal Flag Note LastModifiedBy Organization Detail LastModifiedTime 07/02/19 22 XR, hand, 3 or more view No observ ation record ed. [id number] [facility] [place] [address], [place], [address], 05/21/2022 00:36:00 03/01/20 23 02/25/2023 MRI, knee, w/o contr ast No observ ation record ed. [email or web address] Not Available 02/19 16:09:02 03/10/20 XR, knee No observ ation record ed. [email or web address] [facility] [place] [address], [place], [address], 03/10/2023 10:35:33 Result Notes None recorded. 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 3 09:08:46 Problem Notes None recorded. Procedures Surgical History Date Name Laterality Status Provider Name and Address Organization Details Recorded Time Kidney Stones completed Not Available [facility] 05/21/2022 00:34:18 Imaging Results Imaging Date Name Status LastModified by Organiz ation Details LastModified Time 07/01/2021 XR, hand, 3 or more view completed [id number] [facility] [place] [address], [place], [address], 05/21/2022 00:36:00 02/25/2023 MRI, knee, w/o contrast completed [email or web address] Information not available 03/01/2023 16:09:02 03/10/2023 XR, knee completed [email or web address] [facility] [place] [address], [place], [address], 03/10/2023 10:35:33 Procedure Notes None recorded. Medical Equipment None Reported. Allergies Allergen ID Allergen Name Allergen Category Reaction Reaction Severity Criticality Documentation Date Start Date Code Code System Note Provider Name and Address Organization Details Recorded Time 91815 prednison e medicatio n Not available Not available Not available 03/10/2023 8640 RxNorm ANIYAH [place] [facility] 09:04:56 Medications Name Sig Start Date Stop [...] suspension for injection in office 2022 active [facility]: 0003- 0494- 20 Not Available Not [...] DateTime 07/01/2021 33.3 kg/m2 165.1 cm 6 91211.47 g Not Available [facility] 05/21/2022 00:35:00 Date Recorded Body mass index (BMI) Body height Pain severity - 0-10 verbal numeric rating [Score] - Reported Body weight Provider Name and Address Organization Details Last Updated DateTime 08/05/2021 33.3 kg/m2 165.1 cm 1 14510.47 g Not Available [facility] 05/21/2022 00:35:00 Date Recorded Body mass index (BMI) Body height Body weight Provider Name and Address Organization Details Last Updated DateTime 08/12/2021 33.3 kg/m2 165.1 cm 96979.47 g Not Available [facility] 05/21/2022 00:35:00 Date Recorded Body mass index (BMI) Body height Pain severity - 0-10 verbal numeric rating [Score] - Reported Body weight Provider Name and Address Organization Details Last Updated DateTime 10/22/2021 33.3 kg/m2 165.1 cm 0 94127.47 g Not Available [facility] 05/21/2022 00:35:00 Date Recorded Body height Body mass index (BMI) Body weight Provider Name and Address Organization Details Last Updated DateTime 03/10/2023 166.37 cm 34.6 kg/m2 91742.99 g ANIYAH Villed[place] - [facility] 03/10/2023 09:19:31 Social History Question Answer Notes LastModified by Organizat ion Details LastModified Time Tobacco Smoking Status Former Smoker Not Available [facility] 05/21/2022 00:34:13 What Is Your Level Of Alcohol Consumption? Occasional [id number] Information not available 05/21/2022 [facility] You [facility] [id number] Information not available 05/21/2022 What Was The Date Of Your Most Recent Tobacco Screening? 07/01/2021 [id number] Information not available 05/21/2022 Sex: Unknown Functional Status None recorded. Mental Status None recorded. Family History Relationship Description Onset Age of this Age Resolved Age Notes LastModified by Organization Details LastModified Time Father Family history of stroke [id number] Not available 05/21/2022 00:34:19 Father Hypertensive disorder [id number] Not available 05/21/2022 00:34:19 Father Diabetes mellitus [id number] Not available 05/21/2022 00:34:19 Maternal Grandmother Family history of malignant neoplasm [email or web address] Not available 2022 09:06:47 Medical History Condition Response ULCERS Y URINARY/BLADDER/KIDNEY PROBLEMS Y HYPERTENSION Y Gynecological HistoryNo gynecological history recorded. Obstetrics History GPAL:G 0 P 0 0 0 0 Past Encounters Encounter ID Performer Location Encounter Start Date Encounter Closed Date Diagnosis/Indication Diagnosis SNOMED-CT Code Diagnosis ICD10 Code Diagnosis Note [id number] Juancho Schilling MD [facility] [place] [address] [facility] [address] [place] [address] 07/01/2021 00:00:00 07/01/2021 12:27:30 [id number] Juancho Schilling MD [facility] [place] [address] [facility] [address] [place] [address] 08/05/2021 00:00:00 08/05/2021 11:06:39 [id number] Juancho Schilling MD [facility] [place] [address] [facility] [address] [place] [address] 08/12/2021 00:00:00 08/12/2021 17:57:14 [id number] Juancho Schilling MD [facility] [place] [address] [facility] [address] [place] [address] 10/22/2021 00:00:00 10/22/2021 14:36:34 [id number] Shayne Galvez MD [facility] [place] [address] [facility] [address] [place] [address] 03/10/2023 08:37:45 03/10/2023 11:15:58 Pain of left knee joint 8487377398 38198 M25.562 Health Concerns Section Related Observation LastModified by Organization Detai ls LastModified Time None Recorded Concern Status LastModified by Organization Details LastModified Time None Recorded Advance Directives Directive None Recorded Payers Encounter Date Sequence Insurance Name Policy Number Policy Chiang Covered Member ID Chiang Member ID Guarantor Name 03/10/2023 1 [facility] [employer] [id number] Sherrell Take [id number] Sherrell Take OBGyn Episode No OBEpisode recorded.
--- OUTSIDE RECORDS SUMMARY | 2024-07-24 08:58 | XMS_ITS | Clinical Summary ---
Author Organization [facility] Address [address] [place] [address] Care Team Providers Care Underground Mine Superintendent Name Role Phone Joslyn Espino Primary Care [...] on file Legal Sex Female 1:40 PM LIGHT COIL WINDER Gender Identity Not on file Sexual Orientation Not on file Obstetrics History Last Filed Vital Signs Vital Sign Reading Time Taken Comments Blood Pressure 105/59 05/12/2023 9:55 AM LIGHT COIL WINDER Pulse 78 05/12/2023 10:05 AM LIGHT COIL WINDER Temperature 36 C (96.8 F) 05/12/2023 10:05 AM LIGHT COIL WINDER Respiratory Rate 22 05/12/2023 10:05 AM LIGHT COIL WINDER Oxygen Saturation 95% 05/12/2023 10:05 AM LIGHT COIL WINDER Inhaled Oxygen Concentration - - Weight 94.8 kg (209 lb) 05/12/2023 6:32 AM LIGHT COIL WINDER Height 165.1 cm (5' 5 ) 05/12/2023 6:32 AM LIGHT COIL WINDER Body Mass Index 34.78 05/12/2023 6:32 AM LIGHT COIL WINDER Plan of Treatment Health Maintenance Due Date [...] this topic Medical Devices Implanted Type Area Skilled Nursing Facilities Professional Device Identifier Shelf Expiration Date Model / Serial / Lot Clip Clip Left: Breast Insurance [place] [id number] Advance Directives For more information, please contact: [phone] * Full Code (Latest Code Status on File) Date Activated Date Inactivated Comments 05/12/2023 8:53 AM 05/12/2023 2:29 PM Care Teams Underground Mine Superintendent Relationship Specialty Start Date End Date Joslyn Espino PA [address] [place] [address] PCP - General Family Medicine 04/26/23
--- OUTSIDE RECORDS SUMMARY | 2024-07-24 08:58 | XMS_ITS | Referral Summary ---
Author Organization [facility] Address [address] [place] [address] Care Team Providers Care Movie Theater Manager Name Role Phone Joslyn Espino Primary Care Provider [phone] Allergies Active Allergy Reactions Criticality Noted Date [...] on file Legal Sex Female 1:40 PM TRAVEL JOURNALIST Gender Identity Not on file Sexual Orientation Not on file Last Filed Vital Signs Vital Sign Reading Time Taken Comments Blood Pressure 105/59 05/12/2023 9:55 AM TRAVEL JOURNALIST Pulse 78 05/12/2023 10:05 AM TRAVEL JOURNALIST Temperature 36 C (96.8 F) 05/12/2023 10:05 AM TRAVEL JOURNALIST Respiratory Rate 22 05/12/2023 10:05 AM TRAVEL JOURNALIST Oxygen Saturation 95% 05/12/2023 10:05 AM TRAVEL JOURNALIST Inhaled Oxygen Concentration - - Weight 94.8 kg (209 lb) 05/12/2023 6:32 AM TRAVEL JOURNALIST Height 165.1 cm (5' 5 ) 05/12/2023 6:32 AM TRAVEL JOURNALIST Body Mass Index 34.78 05/12/2023 6:32 AM TRAVEL JOURNALIST Plan of Treatment Not on file Medical Devices Implanted Type Area Frog Or Oyster Farmworker Device Identifier Shelf Expiration Date Model / Serial / Lot Clip Clip Left: Breast Insurance Advance Directives For more information, please contact: [phone] * Full Code (Latest Code Status on File) Date Activated Date Inactivated Comments 05/12/2023 8:53 AM 05/12/2023 2:29 PM Care Teams Movie Theater Manager Relationship Specialty Start Date End Date Joslyn Espino PA [address] [place] [address] PCP - General Family Medicine 04/26/23
== END 2024-07-24 08:33 | disposition home or self-care (01) ==
PROVIDERS: PCP Family Medicine; Visit Provider Urology
DX: N20.0 Calculus of kidney (principal)
CPT/HCPCS: 74018

== ENCOUNTER 2024-11-05 13:13 | Emergency (ER) | payer OTHER, SELFPAY ==
--- OUTSIDE RECORDS SUMMARY | 2024-11-05 13:14 | XMS_ITS | Clinical Summary ---
Author Organization [facility] Address [address] [place] [address] Care Team Providers Care Credit Reporter Name Role Phone Joslyn Espino Primary Care Provider [phone] Allergies Active Allergy Reactions Criticality Noted Date [...] on file Legal Sex Female 1:40 PM INTENSIVE CARE ANAESTHETIST Gender Identity Not on file Sexual Orientation Not on file Obstetrics History Last Filed Vital Signs Vital Sign Reading Time Taken Comments Blood Pressure 105/59 05/12/2023 9:55 AM INTENSIVE CARE ANAESTHETIST Pulse 78 05/12/2023 10:05 AM INTENSIVE CARE ANAESTHETIST Temperature 36 C (96.8 F) 05/12/2023 10:05 AM INTENSIVE CARE ANAESTHETIST Respiratory Rate 22 05/12/2023 10:05 AM INTENSIVE CARE ANAESTHETIST Oxygen Saturation 95% 05/12/2023 10:05 AM INTENSIVE CARE ANAESTHETIST Inhaled Oxygen Concentration - - Weight 94.8 kg (209 lb) 05/12/2023 6:32 AM INTENSIVE CARE ANAESTHETIST Height 165.1 cm (5' 5) 05/12/2023 6:32 AM INTENSIVE CARE ANAESTHETIST Body Mass Index 34.78 05/12/2023 6:32 AM INTENSIVE CARE ANAESTHETIST Plan of Treatment Health Maintenance Due Date Last Done Comments Breast Cancer Screening-Mammogram 1965 Cervical Cancer Screening 1965 Colon Cancer Screening-Colonoscopy 1965 Depression Screening 1965 Hepatitis C Screening 1965 Hepatitis B Screening 12/23/1983 Regular Well Visit/Exam 18-64 12/23/1983 Zoster Vaccine (1 of 2) 12/23/2015 Covid-19 Vaccine (2 - 2023-2 5 season) 2023 08/26/2020 Influenza Vaccine (#1) 2024 0, 12/31/2014 DTaP/Tdap/Td Vaccine (2 - Td or Tdap) 04/12/2026 04/12/2016 Pneumococcal vaccine <65 Aged Out No longer eligible based on patient's age to complete this topic Medical Devices Implanted Type Area Dehairer Device Identifier Shelf Expiration Date Model / Serial / Lot Clip Clip Left: Breast Insurance [place] [id number] Advance Directives For more information, please contact: [phone] * Full Code (Latest Code Status on File) Date Activated Date Inactivated Comments 05/12/2023 8:53 AM 05/12/2023 2:29 PM Care Teams Credit Reporter Relationship Specialty Start Date End Date Joslyn Espino PA [address] [place] [address] PCP - General Family Medicine 04/26/23
--- NOTE | 2024-11-05 13:18 | ED.URI ---
HPI - URI/Sore Throat General Chief Complaint: Upper Respiratory Infection Stated Complaint: sinus infection Time Seen by Provider: 11/05/24 13:15 patient presents to the [facility] care with complaints of nasal congestion, left eye irritation, drainage, matting, left ear pain, left ear fullness, minimal headache that began over the last few days. Patient noted go up this morning in eye was matted shut and overall significantly more uncomfortable. No known sick contacts. Patient noted using some Flonase nasal spray and deni-voa-[id number] cough cold medication as well as clear eyes with minimal relief of symptoms. Denies fever, chills, body aches, shortness of breath, dizziness, drainage from ear, nausea, vomiting, diarrhea. Related Data Home Medications ?Medication ?Instructions ?Recorded ?Confirmed ?Last Taken ?Type levonorgestrel (Mirena) See Rx Instructions .Route .COMPLEX 07/17/21 07/12/24 Unknown History irbesartan 150 1 tablet PO DAILY 07/12/24 07/14/24 07/13/24 History mg-hydrochlorothiazide 12.5 mg tablet Allergies Allergy/AdvReac Type Severity Reaction Status Date / Time prednisone AdvReac Intermediate Sweating Verified 11/05/24 13:21 Review of Systems Constitutional: Constitutional: Reports as per HPI, Denies chills, Reports fatigue, Denies fever(s) and Denies weakness Eyes: Eyes: Reports as per HPI, Denies change in vision and Denies photophobia Comments: Redness, irritation, drainage, matting left eye ENT: Reports as per HPI, Denies vertigo, Denies dizziness, Reports nasal congestion and Denies sore throat Comments: left ear pain, left ear fullness, left sinus pressure Cardiovascular: Cardiovascular: Reports no additional cardiovascular complaints Respiratory: Respiratory: Reports as per HPI, Denies chest congestion, Reports cough, Denies dyspnea and Denies wheezing Gastrointestinal: Gastrointestinal: Reports no additional gastrointestinal complaints Genitourinary: Genitourinary: Reports no additional female genitourinary complaints Musculoskeletal: Musculoskeletal: Reports no additional musculoskeletal complaints Integumentary/Breasts: Skin/Breast: Reports as per HPI, Denies erythema and Denies rash Neurologic: Reports as per HPI, Denies vertigo, Denies dizziness and Reports headache(s) Psychiatric: Psychiatric: Reports no additional psychiatric complaints Endocrine: Endocrine: Reports no additional endocrine complaints Hematologic/Lymphatic: Hematologic/Lymphatic: Reports no additional hematologic/lymphatic complaints Allergic/Immunologic: Allergic/Immunologic: Reports no additional allergic/immunologic complaints [facility] Past Medical History Medical History Obstructive sleep apnea Osteoarthritis of right foot Primary osteoarthritis of left foot Osteoarthritis, multiple sites MINH (generalized anxiety disorder) Essential hypertension COPD (chronic obstructive pulmonary disease) Insomnia Chronic headaches Surgical History Surgical History History of uterine suspension procedure 05/2018 History of urethral stent placement 02/11/2015 removal 03/27/2015 History of laparoscopic cholecystectomy 05/2011 History of lithotripsy 06/2003, 07/2012, 03/08/2015 History of laparoscopy ovarian cyst 2002 Family History Family History Other Diabetes mellitus Family history of arthritis Family history of gout Family history of kidney disease Hypertension Social History Social History Smoking packs per day: 1.5 Smoking cigarettes per day: 30.0 Years smoked: 10 Smoking pack-years: 15.00 Smoking status: Former smoker Tobacco type: cigarettes Smoking end date: 09/20/95 Additional smoking assessment comments: STOPPED 1994 Alcohol intake: current Alcohol use details: 2 PER YEAR Substance use: never Substance use type: marijuana Other substance usage details: IN HIGH SCHOOL Lack of Transportation: No Lack of Food: Never True Current Housing: I Have Housing Concerned About Future Housing: No Difficulty Paying Gas/Electric Bills: No Difficulty Paying for Meds: No Currently Unemployed: No Education: Trade/Vocational Certificate Difficulty w/ Childcare or Family Care: No Living arrangements: with family Additional living arrangements comments: BOYFRIEND AND DAUGHTER Occupation/Education: occupation Gender identity (if verbalized by the patient): Female Sexual Orientation (if Verbalized by the Patient): Straight or Heterosexual Spiritual care concerns: No Exam Const: General: healthy appearing and no acute distress Nutritional Appearance: well nourished Orientation/consciousness: patient oriented x3 Limitations: no limitations HENMT: Head: normal to inspection Ears: external ears normal, TM's abnormal bilaterally and TM abnormal ( left ear) bulging, dull, wth effusion, erythematous, with fluid behind the TM and with loss of landmarks Face/Nose/Sinus: Normal external nose present and Normal nares present Face and sinus: normal facial exam and sinus tenderness ( left maxillary) Mouth: Yes Normal oral and palatal mucosa present, Yes lip normal and Yes moist mucous membranes Throat: posterior oropharynx normal Eyes: Conjunctivae: abnormal conjunctivae and conjunctival abnormality ( erythema and minimal exudate) left Pupils: Equal, round and reactive pupils present EOM: EOMs intact bilaterally Direct Ophthalmoscopy: no photophobia Neck: Neck: normal visual inspection and no lymphadenopathy Resp: Effort & Inspection: normal respiratory effort Auscultation: clear to auscultation bilaterally Cardio: Rate: regular rate Rhythm: regular rhythm Skin: General skin exam: normal color Rashes: no rashes Wounds: no wounds Neuro: General: patient oriented x3 Cranial nerves: Yes Nystagmus not present Speech: normal speech Gait exam (Neuro): Normal gait present Psych: Mental Status: mental status grossly normal Affect: normal affect Attitude: cooperative Course Course Level of Care: Express Care Visit MDM - URI/Sore Throat MDM Narrative Medical decision making narrative: AOM left noted, consistent with conjunctivitis. Will treat. Discharge instructions reviewed with patient, as well as provided in writing per nursing staff. The instructions also include specific and strict return/GO TO THE ER as well as f/u information. All questions have been answered, and the patient deny any further questions with discharge and discharge plan. Differential Diagnosis Differential diagnosis: Likely upper respiratory infection, croup, otitis media, sinusitis, influenza and pharyngitis Medical Records Attestation: I reviewed the patient's medical records. Discharge Plan Discharge Clinical Impression: Acute otitis media, left, Acute conjunctivitis of left eye Patient Disposition: Home Condition: Stable Instructions: Antibiotic Form, Ear Infection (ED), Conjunctivitis (ED) Additional Instructions: Return to urgent care or go to the ER for new or worsening symptoms. Continue to take Tylenol or Motrin for pain. Use a humidifier or vaporizer at night. Take Medications as prescribed. Drink plenty of water. 8-10 glasses per day. Use flonase 2 times per day for 5 days then as needed Take mucinex 2 times per day and be sure to take with 8oz of water. Take the full dose of antibiotics as directed to decrease inflammation and open up sinus and airway Increase water intake to 8-10 glasses per day also recommended adding Sudafed to help with congestion and fluid in ears Your exam today shows Conjunctivitis, You have been given a prescription for eye drops. Use the eye drops as instructed. If you are not better in two (2) days, you need to follow up with an linter tender. Do not rub the eye or put anything else in the eye, this can cause abrasions (scratches) on the eye or lead to vision loss. Also it is important not to touch the tube or tip of drops to the eye, as this can cause further infection. Wash your hands very well before instilling the medication. Handwashing can help prevent the spread of disease. Follow up with PCP in 7-10 days Return to ER for problems Contact [facility] if you need an Parcel Post Order Clerk [] Patient Language: Macedonian Prescriptions: New tobramycin 0.3 % drops 1 drp LEFT EYE Q4H 7 Days Qty: 5 0RF amoxicillin 875 mg tablet 875 mg PO Q12H Qty: 20 0RF No Action Mirena 20 mcg/24 hours (7 yrs) 52 mg Intrauterine Device See Rx Instructions .ROUTE .COMPLEX Rx Instructions: 20 mcg intrauterinely irbesartan-hydrochlorothiazide 150-12.5 mg tablet 1 tablet PO DAILY Rx Instructions: TAKE 1 TABLET BY MOUTH EVERY DAY diclofenac sodium 75 mg tablet,delayed release (DR/EC) 75 mg PO BID PRN (Reason: pain) Qty: 90 1RF Follow-up/Referrals: UNKNOWN,DOCTOR [Primary Care Provider] - Time of Disposition: 13:33
[2024-11-05 13:21] VITALS: BP 122/67; PULSE 76; RESP 18; TEMP 36.3; O2SAT 99
== END 2024-11-05 13:36 | disposition home or self-care (01) ==
PROVIDERS: Emergency Provider Nurse Practitioner Family
DX: H66.92 Otitis media, unspecified, left ear (principal); H10.32 Unspecified acute conjunctivitis, left eye; Z87.891 Personal history of nicotine dependence; I10 Essential (primary) hypertension; J44.9 Chronic obstructive pulmonary disease, unspecified; M19.072 Primary osteoarthritis, left ankle and foot; M19.071 Primary osteoarthritis, right ankle and foot
CPT/HCPCS: 99213; G0463